=== PATIENT | male | born 1960 | race Caucasian/White ===

== ENCOUNTER 2024-07-09 23:58 | Inpatient (IN) | payer MEDICARE, SELFPAY ==
[2024-07-09] VITALS (14 sets, daily range): BP systolic 127–200; BP diastolic 66–106; BMI 28.5
[2024-07-09 20:59] LABS: % Basophils 0.8 % (0-2); % Eosinophils 1.6 % (0-6); % Immature Granulocytes 0.3 % (0-0.5); % Lymphocytes 22.1 % (20.5-51.1); % Monocytes 9.8 % (1.7-9.3); % Neutrophils 65.4 % (42.2-75.2); Absolute Basophils 0.1 10^3/uL (0-0.2); Absolute Eosinophils 0.1 10^3/uL (0-0.7); Absolute Lymphocytes 1.4 10^3/uL (1.2-3.4); Absolute Monocytes 0.6 10^3/uL (0.1-0.6); Absolute Neutrophils 4.1 10^3/uL (1.4-6.5); Hematocrit 44.9 % (39.0-52.0); Hemoglobin 14.9 g/dL (13.0-18.0); Mean Corp Hgb Conc. 33.2 g/dL (33.0-37.0); Mean Corpuscular Hgb 28.7 pg (27.0-31.0); Mean Corpuscular Volume 86.5 fL (80.0-94.0); Mean Platelet Volume 9.2 fL (7.4-10.4); Nucleated Red Blood Cells % 0 % (-); Platelet Count 257 10^3/uL (130-400); Red Blood Cell Count 5.19 10^6/uL (4.70-6.10); White Blood Cell Count 6.3 10^3/uL (4.8-10.8)
[2024-07-09 21:14] LABS: ALT (SGPT) 34 U/L (0-50); AST (SGOT) 39 U/L (17-59); Albumin 4.4 g/dl (3.5-5.0); Alkaline Phosphatase 113 U/L (38-126); Blood Urea Nitrogen 22 mg/dl (9-20); Calcium 9.3 mg/dl (8.4-10.2); Carbon Dioxide 26 mmol/L (22-30); Chloride 101 mmol/L (98-107); Glucose 163 mg/dl (70-99); Potassium 4.3 mmol/L (3.5-5.1); Sodium 139 mmol/L (135-145); Total Bilirubin 0.3 mg/dl (0.2-1.3); Total Protein 6.7 g/dl (6.3-8.2); eGFR > 60.00
[2024-07-09 21:21] LABS: Troponin I 0.064 ng/ml
[2024-07-09] MEDS: LOW STRENGTH ASPIRIN 324 MG PO (21:27)
[2024-07-09] MEDS: NITROSTAT (SUBLINGUAL) 0.4 MG SL (21:33)
--- NOTE | 2024-07-09 21:42 | ED.GENMED ---
History of Present Illness
<Cristi Sarmiento PA-C - Last Filed: 07/09/24 22:45>
General
Chief Complaint: Chest Pain
Source: patient
Time Seen by Provider: 07/09/24 21:15
History of Present Illness
History of Present Illness:
4-year-old male with past medical history of hypertension who presents to the emergency department for evaluation after he started experiencing chest comfort about 2-1/2 weeks ago while he was on his usual walk with his stating that they walk
at least 4 miles every day, 5 miles on Tuesday but that during the beginning of the while/jog he started to experience midsternal chest heaviness and bilateral arm discomfort that lasted the duration of the light jog and then would resolve following
cessation of the activity. Patient states that this occurred a couple times over the last 2-1/2 weeks but he also noted some chest discomfort at nighttime while sleeping twice over the last 2-1/2 weeks as well. Patient made an appointment with his
primary care provider due to the symptoms which was scheduled for tomorrow however earlier this evening he was helping a neighbor with a locked door when he was climbing up a ladder and while climbing the ladder started to experience the chest
discomfort and bilateral arm heaviness again. The chest discomfort resolved while on the way to the hospital. He denies any history of similar. Did not take anything for his symptoms prior to arrival. Social history was noncontributory. Family
history was noted for grandmother having a cardiac stent
Past History
<Cristi Sarmiento PA-C - Last Filed: 07/09/24 22:45>
Past History
ED Past Medical History: HTN
ED Past Surgical History: Orthopedic and Tonsilectomy
Social History
Tobacco: Non-smoker
Alcohol: Occasional
Drug: None
Personal:
Living: with family
Review of Systems
<Cristi Sarmiento PA-C - Last Filed: 07/09/24 22:45>
Review of Systems
All Other Systems: ROS reviewed and negative except as documented in HPI and ROS
Phy Exam
<Cristi Sarmiento PA-C - Last Filed: 07/09/24 22:45>
Physical Exam
Physical Exam:
GENERAL: Alert , in no apparent distress
EYE: Clear conjunctiva
NECK: Supple
ENT: o/p clr, mmm.
CARDIAC: Regular rate and rhythm, no murmur.
LUNGS: Clear breath sounds bilaterally, no acute respiratory distress, no wheezes/rales/rhonchi
ABDOMEN: Soft, without focal tenderness, no r/g, no cvat
NEUROLOGICAL: Alert and oriented
SKIN: Warm and dry, skin intact.
MUSCULOSKELETAL: No edema, well perfused.
PSYCH: Normal and appropriate interaction.
Scores
<Cristi Sarmiento PA-C - Last Filed: 07/09/24 22:45>
Heart Failure Risk
Heart Failure Risk Score: Not Applicable
Heart Score for Chest Pain Patients
STEMI patient?: No
History: Highly Suspicious
ECG: Nonspecific Repolarization
Age: >/= 65 years
Risk Factors: 1 or 2 Risk Factors
Troponin: </= Normal Limit
Heart Score for Chest Pain Patients: 6
Heart Score Risk: 20.3% MACE over next 6 weeks
Withdrawal Assessment of Alcohol
Withdrawal Assessment Completed?: Not applicable
Course
<Cristi Sarmiento PA-C - Last Filed: 07/09/24 22:45>
Orders/Labs/Results
Orders:
Orders
07/09/24 20:30
ECG [Electrocardiogram (*1)] Urgent
Reason for Study: Chest Pain
EKG- Treatment ONCE
07/09/24 20:50
Complete Blood Count/With Diff Urgent
Comprehensive Metabolic Panel Urgent
Troponin I Urgent
07/09/24 21:25
Aspirin Chewable [Low Strength Aspirin] 324 mg .ROUTE .STK-MED ONE
07/09/24 21:27
Aspirin Chewable [Low Strength Aspirin] 324 mg PO NOW STA
07/09/24 21:31
EKG [Electrocardiogram (*1)] Urgent
Reason for Study: Chest Pain
07/09/24 21:32
EKG- Treatment ONCE
Nitroglycerin Sublingual [Nitrostat (Sublingual)] 0.4 mg .ROUTE .STK-MED ONE
07/09/24 21:34
Nitroglycerin Sublingual [Nitrostat (Sublingual)] 0.4 mg SL [id number] PRN
07/09/24 21:38
Metoprolol [Lopressor] 5 mg IV NOW STA
07/09/24 21:40
Heparin 4,000 units IV NOW STA
Nursing to Place Non Medication Order As Directed
Physician Order: PTT 6 hours after initial start of Heparin infusion
07/09/24 21:41
Heparin 4,000 units IV NOW STA
Nursing to Place Non Medication Order As Directed
Physician Order: PTT 6 hours after initial start of Heparin infusion
07/09/24 21:42
CR Chest - 2 Views Urgent
Comment:
Reason For Exam: chest pain, angina
07/09/24 21:43
PTT Urgent
Comment: Obtain baseline before beginning heparin infusion if not already collected
07/09/24 21:45
Heparin 56971 Units/250 ml 25,000 units in 250 ml IV PER PROTOCOL
Weight to be used for heparin protocol in kilograms (kg):: 92.6
Protocol:: Cardiac Tx/Acute Coronary
PTT Goal Range to be used:: PTT 73 to 111 seconds
Order type:: Initial
INITIAL Infusion Dose (UNITS/KG/hr) & then follow protocol:: 15 units/kg/hr
Infusion Dose in UNITS/hr & then follow protocol (UNITS/hr):: 1,400
INFUSION RATE in mL/hr & then follow protocol (mL/hr):: 14
PTT less than or equal to 64 seconds:: Increase rate by 200 units/hr (+ 2 mL/hr)
PTT 64.1 to 72.9 seconds:: Increase rate by 100 units/hr (+ 1 mL/hr)
PTT 73 to 111 seconds:: Target Range. No change in rate.
PTT 111.1 to 130.9 seconds:: Decrease rate by 100 units/hr (- 1 mL/hr)
PTT 131 to 199.9 seconds:: HOLD for 1 hr. Then decrease rate by 200 units/hr (- 2 mL/hr)
PTT greater than or equal to 200 seconds:: HOLD for 2 hrs & Notify Provider. Then decrease by 200 units/hr (-
2 mL/hr)
Lab follow-up:: Each change, PTT q6h until 2 consecutive are therapeutic. Then PTT
daily.
Heparin 56185 Units/250 ml 25,000 units in 250 ml IV PER PROTOCOL
Weight to be used for heparin protocol in kilograms (kg):: 92.6
Protocol:: Cardiac Tx/Acute Coronary
PTT Goal Range to be used:: PTT 73 to 111 seconds
Order type:: Initial
INITIAL Infusion Dose (UNITS/KG/hr) & then follow protocol:: 12 units/kg/hr
Infusion Dose in UNITS/hr & then follow protocol (UNITS/hr):: 1,000
INFUSION RATE in mL/hr & then follow protocol (mL/hr):: 10
PTT less than or equal to 64 seconds:: Increase rate by 200 units/hr (+ 2 mL/hr)
PTT 64.1 to 72.9 seconds:: Increase rate by 100 units/hr (+ 1 mL/hr)
PTT 73 to 111 seconds:: Target Range. No change in rate.
PTT 111.1 to 130.9 seconds:: Decrease rate by 100 units/hr (- 1 mL/hr)
PTT 131 to 199.9 seconds:: HOLD for 1 hr. Then decrease rate by 200 units/hr (- 2 mL/hr)
PTT greater than or equal to 200 seconds:: HOLD for 2 hrs & Notify Provider. Then decrease by 200 units/hr (-
2 mL/hr)
Lab follow-up:: Each change, PTT q6h until 2 consecutive are therapeutic. Then PTT
daily.
Nitroglycerin 100 mg/250 ml [Nitroglycerin Premix] 100 mg in 250 ml IV PER PROTOCOL
Initial dose in mcg/min, then titrate:: 10
Titrate to keep:: Chest Pain Free
Titrate by mcg/min:: 5 mcg/min, may increase by 10 mcg/min if dose > 20 mcg/min
Frequency of titrations (minutes):: every 3-5 minutes
Maximum dose in mcg/min:: 200
Begin to taper infusion when:: Remained at goal for 2hrs
Taper by mcg/min:: 5 mcg/min
Frequency of taper (minutes) if patient maintains goal:: 30
Taper to off?: Yes
If infusion off & no longer maintaining goal:: Contact Provider
Abnormal Lab Results
07/09/24
20:50
Monocytes % 9.8 H %
(1.7-9.3)
BUN 22 H mg/dl
(9-20)
Glucose 163 H mg/dl
(70-99)
Troponin I 0.064 H* ng/ml
07/09/24 20:50
07/09/24 20:50
Vital Signs
Initial and Last Documented VS:
Initial Vital Signs
Temp Pulse Resp BP Pulse Ox
99.0 F 96 18 193/106 96
07/09/24 20:34 07/09/24 20:34 07/09/24 20:34 07/09/24 20:34 07/09/24 20:34
Last Documented Vital Signs
Temp Pulse Resp BP Pulse Ox
99.0 F 88 15 155/84 96
07/09/24 20:34 07/09/24 21:45 07/09/24 21:45 07/09/24 21:42 07/09/24 21:45
Cover Machine Operator consulted with Physician
Cover Machine Operator consulted with physician?: Yes
Name of Physician Consulted: Nitza
<Thomas Goddard, DO - Last Filed: 07/09/24 21:48>
Orders/Labs/Results
Orders:
Orders
07/09/24 20:30
ECG [Electrocardiogram (*1)] Urgent
Reason for Study: Chest Pain
EKG- Treatment ONCE
07/09/24 20:50
Complete Blood Count/With Diff Urgent
Comprehensive Metabolic Panel Urgent
Troponin I Urgent
07/09/24 21:25
Aspirin Chewable [Low Strength Aspirin] 324 mg .ROUTE .STK-MED ONE
07/09/24 21:27
Aspirin Chewable [Low Strength Aspirin] 324 mg PO NOW STA
07/09/24 21:31
EKG [Electrocardiogram (*1)] Urgent
Reason for Study: Chest Pain
07/09/24 21:32
EKG- Treatment ONCE
Nitroglycerin Sublingual [Nitrostat (Sublingual)] 0.4 mg .ROUTE .STK-MED ONE
07/09/24 21:34
Nitroglycerin Sublingual [Nitrostat (Sublingual)] 0.4 mg SL [id number] PRN
07/09/24 21:38
Metoprolol [Lopressor] 5 mg IV NOW STA
07/09/24 21:40
Heparin 4,000 units IV NOW STA
Nursing to Place Non Medication Order As Directed
Physician Order: PTT 6 hours after initial start of Heparin infusion
07/09/24 21:41
Heparin 4,000 units IV NOW STA
Nursing to Place Non Medication Order As Directed
Physician Order: PTT 6 hours after initial start of Heparin infusion
07/09/24 21:42
CR Chest - 2 Views Urgent
Comment:
Reason For Exam: chest pain, angina
07/09/24 21:43
PTT Urgent
Comment: Obtain baseline before beginning heparin infusion if not already collected
07/09/24 21:45
Heparin 26004 Units/250 ml 25,000 units in 250 ml IV PER PROTOCOL
Weight to be used for heparin protocol in kilograms (kg):: 92.6
Protocol:: Cardiac Tx/Acute Coronary
PTT Goal Range to be used:: PTT 73 to 111 seconds
Order type:: Initial
INITIAL Infusion Dose (UNITS/KG/hr) & then follow protocol:: 15 units/kg/hr
Infusion Dose in UNITS/hr & then follow protocol (UNITS/hr):: 1,400
INFUSION RATE in mL/hr & then follow protocol (mL/hr):: 14
PTT less than or equal to 64 seconds:: Increase rate by 200 units/hr (+ 2 mL/hr)
PTT 64.1 to 72.9 seconds:: Increase rate by 100 units/hr (+ 1 mL/hr)
PTT 73 to 111 seconds:: Target Range. No change in rate.
PTT 111.1 to 130.9 seconds:: Decrease rate by 100 units/hr (- 1 mL/hr)
PTT 131 to 199.9 seconds:: HOLD for 1 hr. Then decrease rate by 200 units/hr (- 2 mL/hr)
PTT greater than or equal to 200 seconds:: HOLD for 2 hrs & Notify Provider. Then decrease by 200 units/hr (-
2 mL/hr)
Lab follow-up:: Each change, PTT q6h until 2 consecutive are therapeutic. Then PTT
daily.
Heparin 33365 Units/250 ml 25,000 units in 250 ml IV PER PROTOCOL
Weight to be used for heparin protocol in kilograms (kg):: 92.6
Protocol:: Cardiac Tx/Acute Coronary
PTT Goal Range to be used:: PTT 73 to 111 seconds
Order type:: Initial
INITIAL Infusion Dose (UNITS/KG/hr) & then follow protocol:: 12 units/kg/hr
Infusion Dose in UNITS/hr & then follow protocol (UNITS/hr):: 1,000
INFUSION RATE in mL/hr & then follow protocol (mL/hr):: 10
PTT less than or equal to 64 seconds:: Increase rate by 200 units/hr (+ 2 mL/hr)
PTT 64.1 to 72.9 seconds:: Increase rate by 100 units/hr (+ 1 mL/hr)
PTT 73 to 111 seconds:: Target Range. No change in rate.
PTT 111.1 to 130.9 seconds:: Decrease rate by 100 units/hr (- 1 mL/hr)
PTT 131 to 199.9 seconds:: HOLD for 1 hr. Then decrease rate by 200 units/hr (- 2 mL/hr)
PTT greater than or equal to 200 seconds:: HOLD for 2 hrs & Notify Provider. Then decrease by 200 units/hr (-
2 mL/hr)
Lab follow-up:: Each change, PTT q6h until 2 consecutive are therapeutic. Then PTT
daily.
Nitroglycerin 100 mg/250 ml [Nitroglycerin Premix] 100 mg in 250 ml IV PER PROTOCOL
Initial dose in mcg/min, then titrate:: 10
Titrate to keep:: Chest Pain Free
Titrate by mcg/min:: 5 mcg/min, may increase by 10 mcg/min if dose > 20 mcg/min
Frequency of titrations (minutes):: every 3-5 minutes
Maximum dose in mcg/min:: 200
Begin to taper infusion when:: Remained at goal for 2hrs
Taper by mcg/min:: 5 mcg/min
Frequency of taper (minutes) if patient maintains goal:: 30
Taper to off?: Yes
If infusion off & no longer maintaining goal:: Contact Provider
Abnormal Lab Results
07/09/24
20:50
Monocytes % 9.8 H %
(1.7-9.3)
BUN 22 H mg/dl
(9-20)
Glucose 163 H mg/dl
(70-99)
Troponin I 0.064 H* ng/ml
07/09/24 20:50
07/09/24 20:50
Vital Signs
Initial and Last Documented VS:
Initial Vital Signs
Temp Pulse Resp BP Pulse Ox
99.0 F 96 18 193/106 96
07/09/24 20:34 07/09/24 20:34 07/09/24 20:34 07/09/24 20:34 07/09/24 20:34
Last Documented Vital Signs
Temp Pulse Resp BP Pulse Ox
99.0 F 88 15 155/84 96
07/09/24 20:34 07/09/24 21:45 07/09/24 21:45 07/09/24 21:42 07/09/24 21:45
<Cristi Sarmiento PA-C - Last Filed: 07/09/24 22:45>
MDM/Problems Addressed
Differential Diagnosis Includes:
Angina, NSTEMI, STEMI, PE, dissection, GERD/gastritis
MDM/Problems Addressed:
64-year-old male presenting to the emergency department for evaluation of what sounds to be anginal related symptoms over the last 2-1/2 weeks. Symptoms progressively worsening. During examination patient started to complain of recurring chest
discomfort and got diaphoretic. He was hypertensive. Repeat EKG ordered which shows nonspecific ST changes. He was given a dose of sublingual nitroglycerin and 324 mg of aspirin. Following the sublingual nitroglycerin patient was again chest
pain-free. Labs have been initiated on arrival and patient does have a slightly elevated troponin at 0.064. I am most suspicious for angina as cause of patient's symptoms. Given findings will initiate heparin and nitro drip ordered. Will consult
with cardiology with anticipated admission and further evaluation by cardiology in the morning.
Chronic conditions affecting care: HTN
Acute Exacerbation and/or Progression of Chronic Illness: HTN
<Cristi Sarmiento PA-C - Last Filed: 07/09/24 22:45>
*Pulse Oximetry
Patient hypoxic: no
*EKG
Heart Rate: 84
Rate: normal
Rhythm: sinus
Ischemia: no ischemia
*[employer] Interpretation
Rate: normal
Rhythm: sinus
*Critical Care Note
Total Time (30-74mins, 75-104mins- exclusive of procedures): 35
comment:
Critical care statement: A total of 35 minutes of critical care time was provided for this patient. This includes management of unstable vital signs, evaluation of the patient at bedside, reviewing the patient's pertinent medical records, discussion
with consultants, review of old EKGs and review of pertinent medical records. This time with separate from time utilized to perform the aforementioned documented procedures
<Cristi Sarmiento PA-C - Last Filed: 07/09/24 22:45>
Patient Management
Discussion with other providers: Hospitalist and Bridge Teacher
Escalation/DeEscalation of care consider admission/obs:
Cardiology agrees with plan. Hospitalist team accepts for continued evaluation and treatment.
Repeat EKG shows ST changes in V4 through V6 and inferior leads but no STEMI.
ED Attending Note
<Cristi Sarmiento PA-C - Last Filed: 07/09/24 22:45>
-
Portions of this chart may have been created with voice recognition software.� Occasional wrong word or��sound alike� substitutions may have occurred due to the inherent limitations of voice recognition software.
<Thomas Goddard DO - Last Filed: 07/09/24 21:48>
ED Attending Note
Patient seen and examined by attending physician: Yes
I performed the substantive portion of visit, reviewed & personally made and approve the management plan that is documented in note by myself or FELIPA.: Yes
ED Attending Note:
Seen with PA examined independently 64 male hypertension 2 to 4 weeks of chest pains issues with exertion worsening now some with rest tonight, blood pressures up EKG with some dynamic changes laterally, chest pain-free after 1 sublingual nitro
initial troponin noted, pain went into his jaw and bilateral arms did not go to his back, will start beta-radha heparin nitrates, follow closely
Discharge Plan
Departure
Patient Disposition: Admit
Date of Disposition: 07/09/24
Time of Disposition: 21:42
Presentation/result/management discussed w/ accepting MD/DO: Hospitalist
Discharge Problem:
Angina pectoris, Hypertension
Prescriptions:
No Action
amlodipine 5 mg Tablet
5 mg PO HS
losartan 100 mg Tablet
100 mg PO DAILY
Theragen Tablet
1 tab PO DAILY
aspirin 81 mg Tablet,Delayed Release (Dr/Ec)
81 mg PO DAILY
famotidine 20 mg Tablet
20 mg PO DAILY
diphenhydramine HCl [Benadryl] 25 mg Capsule
25 mg PO DAILY
cholecalciferol (vitamin D3) 125 mcg (5,000 unit) Tablet
125 mcg PO DAILY
red yeast rice 600 mg Tablet
600 mg PO DAILY
PreserVision AREDS-2 250-90-40-1 mg Capsule
1 tab PO DAILY
cyanocobalamin (vitamin B-12) 2,500 mcg Tablet
2,500 mcg PO DAILY
[employer] 750 mg-100 mg- 1.65 mg-108 mg Tablet
1 tab PO DAILY
Interventions
Interventions:
*Risk Screen - Suicide Last Done: 07/09/24 20:34
*General Assessment Last Done: 07/09/24 20:34
*Neglect/Abuse Screening Last Done: 07/09/24 20:34
Discharge Date and Time
Print Language: KENYAN
[2024-07-09] MEDS: NITROGLYCERIN PREMIX 250 IV (21:52)
[2024-07-09 22:01] LABS: APTT 27.4 Sec (23.4-35.0)
[2024-07-09] MEDS: HEPARIN 4000 UNITS IV (22:08)
[2024-07-09] MEDS: HEPARIN 25000 UNITS/250 ML IV (22:09)
[2024-07-10] VITALS (23 sets, daily range): BP systolic 123–160; BP diastolic 64–83; BMI 27.2
--- NOTE | 2024-07-10 00:02 | HPS.HSE ---
Family Physician
-
Family Physician: Tawnya Anthony DO
Chief Complaint
-
Chest pain
History of Present Illness
This is a 64-year-old with past medical history of hypertension and otherwise healthy who presents to the emergency department with worsening chest pain that became persistent and waking him up from sleep today.
Patient reports a history of intermittent chest pain for the last 21/2 weeks. Initially he had a chest pain associated with physical exertion. 8 because after a run he reports substernal chest pain that appears to radiate to the arms and shoulders
bilaterally. Initially no diaphoresis nausea or vomiting. He reports that initially had it was every week on Fridays with his exercises. However he started having the chest pain while walking up a flight of stairs and then developed chest pain
while at rest. He reported that tonight the chest pain woke him up from sleep, again substernal radiating to the arms and associated with heaviness. He denies feeling dizzy or lightheaded. He denies any pleuritic chest pain.
Patient denies prior history of coronary artery disease. He denies any history of blood clots. He has no history of for arrhythmias. Patient reports family history with CAD in grandparents.
In the emergency department the patient was afebrile with temp of 99, blood pressure was 150/89 and was at 96% on room air. ECG shows a sinus rhythm with a rate in the 70s. No acute ischemia. His troponin was 0.064. The rest of his CBC was
unremarkable. Electrolytes BUN/creatinine were all within normal limits. Chest x-ray was clear.
Medical History
Past Medical History
Past Medical History: Reports GERD and HTN
Past Surgical History: Reports Tonsilectomy
Social History
Tobacco: Non-smoker
Alcohol: Occasional
Drug: None
Personal:
Living: With Family
Employment: Retired
Family History
Family History: Not pertinent
Allergies / Home Medications
Allergies reflects when Allergies were last updated in [employer].
Home Medications with original date entered in [employer]
Allergy/Medication List:
Allergies
Allergy/AdvReac Type Severity Reaction Status Date / Time
No Known Allergies Allergy Verified 07/09/24 20:44
Home Medications
amlodipine 5 mg tablet 5 mg PO HS 07/09/24
aspirin 81 mg tablet,delayed release 81 mg PO DAILY 07/09/24
cholecalciferol (vitamin D3) 125 mcg (5,000 unit) tablet 125 mcg PO DAILY 07/09/24
cyanocobalamin (vitamin B-12) 2,500 mcg tablet 2,500 mcg PO DAILY 07/09/24
diphenhydramine HCl 25 mg capsule (Benadryl) 25 mg PO DAILY 07/09/24
famotidine 20 mg tablet 20 mg PO DAILY 07/09/24
glucosam 750 mg-chondroi 100 mg-hyalur 1.65 mg-CF borate 108 mg tablet ([facility]) 1 tab PO DAILY 07/09/24
losartan 100 mg tablet 100 mg PO DAILY 07/09/24
red yeast rice 600 mg tablet 600 mg PO DAILY 07/09/24
therapeutic multivitamin 1 tab PO DAILY 07/09/24
vit C 250 mg-vit E 90 mg-zinc 40 mg-copper 1 lj-cuiyde-myuvub capsule (PreserVision AREDS-2) 1 tab PO DAILY 07/09/24
Review of Systems
-
History Source: Patient
Constitutional: Reports No Symptoms
EENT: Reports No Symptoms
Respiratory: Reports No Symptoms
Cardiac: Reports Chest Pain
Abdomen/GI: Reports No Symptoms
: Reports No Symptoms
Musculoskeletal: Reports No Symptoms
Skin: Reports No Symptoms
Neurological: Reports No Symptoms
Endocrine: Reports No Symptoms
Hematologic/Lymphatic: Reports No Symptoms
Psych: Reports No Symptoms
Physical Exam
Vital Signs
Vital Signs
Temp Pulse Resp BP Pulse Ox
99.0 F 78 18 149/80 98
07/09/24 20:34 07/09/24 23:45 07/09/24 23:45 07/09/24 23:45 07/09/24 23:45
Physical Exam
General: Well Developed, Well Nourished, Comfortable and Conversant
HEENT: NormoCephalic, Anicteric, Moist mucous membranes and Atraumatic
Respiratory: Clear
Cardiac: S1/S2 and Regular Rhythm
Breast: Deferred by me
GI: Soft, Non Tender, Non Distended and Normal Bowel Sounds
Rectal: Deferred by Provider
Genito-urinary: Deferred by me
Musculoskeletal: No Clubbing, No Cyanosis and No Edema
Skin: Warm
Neuro: AO x 3
Hematologic/Lymphatic: No Lymphadenopathy
Psych: Calm
Laboratory Results
-
07/09/24 20:50
07/09/24 20:50
Laboratory Results
APTT 27.4 Sec (23.4-35.0) 07/09/24 21:43
Total Bilirubin 0.3 mg/dl (0.2-1.3) 07/09/24 20:50
AST 39 U/L (17-59) 07/09/24 20:50
ALT 34 U/L (0-50) 07/09/24 20:50
Alkaline Phosphatase 113 U/L (38-126) 07/09/24 20:50
Troponin I 0.064 ng/ml H* 07/09/24 20:50
Data Reviewed
-
Diagnostic Radiology: Image Personally Visualized and interpreted and Report Reviewed by me
Medical Tests (Nuc Med, Echo, EKG etc): Image Personally Visualized and interpreted
Lab Data: Labs Reviewed by me
Old Records: Reviewed
Impression/Plan
-
IMPRESSION:
PLAN:
NSTEMI - History c/w crescendo angina leading to unstable angina and found to have NSTEMI here. Initial trop 0.064. CP relieved with nitro
- admit to ivu
- npo after midnight
- started aspirin, heparin gtt
- ntg gtt titrated to cp fee
- continue home losartan and norvasc with hold parameters
- echo, cardiovascular profile, a1c in am
- cardiology consulted and notifed, requested IVU admission
HTN
- continue losartan and norvasc for now
GI PP x
-continue famotidine
Code status - Full Code
[2024-07-10 00:03] LABS: Troponin I 0.086 ng/ml
[2024-07-10] MEDS: TYLENOL 650 MG PO (04:18)
[2024-07-10 05:04] LABS: Blood Urea Nitrogen 20 mg/dl (9-20); Calcium 8.8 mg/dl (8.4-10.2); Carbon Dioxide 23 mmol/L (22-30); Chloride 106 mmol/L (98-107); Estimated Creatinine Clearance 112 ml/min; Glucose 115 mg/dl (70-99); HDL Cholesterol 52 mg/dl; LDL Cholesterol, Calculated 93 mg/dl; Potassium 4.2 mmol/L (3.5-5.1); Sodium 141 mmol/L (135-145); Total Cholesterol 158 mg/dl (50-199); Triglyceride 69 mg/dl (10-149); Very Low Density Lipoprotein 13 mg/dl (0-30); eGFR > 60.00
[2024-07-10 05:16] LABS: Troponin I 0.072 ng/ml
--- NOTE | 2024-07-10 05:18 | PTCARENOTE ---
Pt chest pain free since coming up from ED just after mn. Pt was medicated with Tylenol for c/o h/a. Heparin gtt adjusted for ptt 116. Currently infusing at 1300 unit/hr. Pt remains npo. Sinus on telemetry
[2024-07-10 05:49] LABS: Hepatitis C Antibody Negative (Negative)
[2024-07-10 06:21] LABS: Hematocrit 40.1 % (39.0-52.0); Hemoglobin 13.7 g/dL (13.0-18.0); Mean Corp Hgb Conc. 34.2 g/dL (33.0-37.0); Mean Corpuscular Hgb 29.1 pg (27.0-31.0); Mean Corpuscular Volume 85.1 fL (80.0-94.0); Mean Platelet Volume 9.6 fL (7.4-10.4); Platelet Count 239 10^3/uL (130-400); Red Blood Cell Count 4.71 10^6/uL (4.70-6.10); Red Cell Dist. Width 13.1 % (11.5-14.5); White Blood Cell Count 6.2 10^3/uL (4.8-10.8)
--- NOTE | 2024-07-10 07:30 | CON.CAR ---
Addendum entered and electronically signed by Cristine Abbott MD 07/10/24 08:48:
I saw and examined the patient.
The Surveying Crew Stake Runner's note was reviewed and I agree with the note.
Comment: Patient presents with crescendo unstable angina that started about 2 to 3 weeks ago. He has had rest symptoms at home. Troponins mildly elevated consistent with non-Q wave myocardial infarction. Risk factors for coronary artery disease
include grandfather with aortic aneurysm rupture in 60s and grandmother with angina and carotid disease later in life. He has hypertension that previously has been well-controlled. Lipids could be better. EKG stable with nonspecific ST-T wave
abnormality.
Exam regular rate and rhythm. Lungs clear. No edema. Can feel abdominal aorta pulsation not clearly enlarged.
Plan at this time:
We discussed the risks and benefits of proceeding with cardiac catheterization he is agreeable. Procedure discussed at length and all questions answered. Continue heparin and nitrates. No current angina on treatment.
Continue antihypertensive medications.
Start statin.
Aspirin started.
Trend troponins
Echocardiogram
Eventually abdominal aorta ultrasound
Original Note:
Consultation
Consultation Request
Date/Time Consultation Requested: 07/10/24 at 0119
Date/Time Consultation Performed: 07/10/24 at 0730
Requesting Provider: Dr. Contreras
Performing Provider: Dr. Cristine Abbott
Reason for Consultation: Chest pain, NSTEMI
Medical History
-
History of Present Illness:
Patient came to [facility] last night with chest pain and cardiology is now consulted for NSTEMI. Patient is an active 64-year-old man and exercises on a daily basis and then goes running about once a week. He was on his usual run 2 weeks ago when he
started with chest pain that went away around mile 3 he was unable to finish his run. The following week while running the chest pain started earlier in his run. Then over the last week he started with chest pain while walking and then chest pain
at rest. He had episodes of chest pain that woke him from sleep in the last week. Yesterday he climbed a ladder to help a neighbor fix her garage open hearth door liner and then while walking back to his house had crushing chest pain that was the worst he is
ever had and came to ER. His troponin peaked 0.086. He is pain-free now on heparin drip and NTG gtt. Patient was taking amlodipine 5 mg daily and losartan 100 mg daily prior to admission along with an aspirin a day.
PMH:
HTN
Past Medical History
Past Medical History: Other (in HPI)
Past Surgical History: Orthopedic ([place]'s tendon repair)
Social History
Tobacco: Non-Smoker
Alcohol: Occasional
Drug: None
Personal:
Living: With Family
Family History
Family History: CAD (maternal grandmother with carotid disease and angina in her 80s, paternal grandfather AAA rupture in his 60s)
Allergies / Home Medications
Allergy/AdvReac Type Severity Reaction Status Date / Time
No Known Allergies Allergy Verified 07/09/24 20:44
�Medication �Instructions �Recorded �Confirmed �Type
amlodipine 5 mg tablet 5 mg PO HS 07/09/24 07/09/24 History
aspirin 81 mg tablet,delayed 81 mg PO DAILY 07/09/24 07/09/24 History
release
cholecalciferol (vitamin D3) 125 125 mcg PO DAILY 07/09/24 07/09/24 History
mcg (5,000 unit) tablet
cyanocobalamin (vitamin B-12) 2,500 mcg PO DAILY 07/09/24 07/09/24 History
2,500 mcg tablet
diphenhydramine HCl 25 mg capsule 25 mg PO DAILY 07/09/24 07/09/24 History
(Benadryl)
famotidine 20 mg tablet 20 mg PO DAILY 07/09/24 07/09/24 History
glucosam 750 mg-chondroi 100 1 tab PO DAILY 07/09/24 07/09/24 History
mg-hyalur 1.65 mg-CF borate 108 mg
tablet (Move Free [employer]
losartan 100 mg tablet 100 mg PO DAILY 07/09/24 07/09/24 History
red yeast rice 600 mg tablet 600 mg PO DAILY 07/09/24 07/09/24 History
therapeutic multivitamin 1 tab PO DAILY 07/09/24 07/09/24 History
vit C 250 mg-vit E 90 mg-zinc 40 1 tab PO DAILY 07/09/24 07/09/24 History
mg-copper 1 [id number]
capsule (PreserVision AREDS-2)
Review of Systems
-
History Source: Patient
All other systems: Negative unless noted
Physical Exam
Vital Signs
Temp Pulse Resp BP Pulse Ox
98.0 F 65 20 128/77 97
07/10/24 04:05 07/10/24 04:45 07/10/24 04:05 07/10/24 04:05 07/10/24 04:05
GEN: NAD. AAOx3
HEENT: EOMI, MMM
LUNGS: RA. CTA B/L, no audible wheeze
CV: Reg, S1/S2, no murmur
ABD: soft, BS+, NT, ND
EXT: No clubbing, cyanosis, lesions or edema B/L
NEURO: Gross non-focal
SKIN: Warm, dry and pink. No rash
Lab Results
07/10/24 04:17
07/10/24 04:17
Troponin I 0.072 ng/ml H* 07/10/24 04:17
Impression / Plan
-
PCP: Dr. Tawnya Anthony
Cardiology: None prior to admission
Impression:
Chest pain
NSTEMI, peak Troponin 0.086
HTN
Hyperglycemia
Echo 07/10/24: Study pending
Plan:
-Patient came to [facility] last night with chest pain and cardiology is now consulted for NSTEMI. Patient is an active 64-year-old man and exercises on a daily basis and then goes running about once a week. He was on his usual run 2 weeks ago when he
started with chest pain that went away around mile 3 he was unable to finish his run. The following week while running the chest pain started earlier in his run. Then over the last week he started with chest pain while walking and then chest pain
at rest. He had episodes of chest pain that woke him from sleep in the last week. Yesterday he climbed a ladder to help a neighbor fix her garage open hearth door liner and then while walking back to his house had crushing chest pain that was the worst he is
ever had and came to ER. His troponin peaked 0.086. He is pain-free now on heparin drip and NTG gtt. Patient was taking amlodipine 5 mg daily and losartan 100 mg daily prior to admission along with an aspirin a day.
-Check echo
-Cont Heparin gtt
-Cont Nitro gtt
-LDL 93. New to atorvastatin 80 mg daily
-HR 68, will add Lopressor 25 mg q 6 hours
-Outpatient dose of losartan 100 mg daily continued
-Hyperglycemic since admission and HgbA1c pending
-Troponin peaked at 0.086 and will manage as a NSTEMI with plan for cath today.
[2024-07-10] MEDS: BENADRYL 25 MG PO (08:24)
[2024-07-10] MEDS: ASPIR LOW (ENTERIC COATED) 81 MG PO (08:25)
[2024-07-10] MEDS: COZAAR 100 MG PO (08:25)
[2024-07-10 09:11] LABS: Glycohemoglobin (HgbA1c) 5.4 % (4.0-5.6)
--- NOTE | 2024-07-10 10:49 | ITS.CL.CATH ---
Aviation Safety Technician - Catheterization
Cardiac Catheterization
Procedure Report:
LEFT HEART CATHETERIZATION AND CORONARY INTERVENTION
Date of Procedure: July 10, 2024
Referring: rCistine Abbott MD
PROCEDURES:
1. Left heart catheterization, coronary angiogram.
2. Ultrasound-guided access
3. Successful percutaneous coronary artery intervention of 75 to 80% and mid LAD stenosis with a one 2.75 x 15 mm Medtronic [place] drug-eluting stent, postdilated with IVUS guidance using a 2.75 x 12 mm NC balloon at 18 lacie with an excellent
angiographic result.
4. Intravascular ultrasound (IVUS)
INDICATION: NSTEMI
ACCESS: Right radial artery, 6 [place] sheath, under ultrasound guidance
HEMODYNAMICS : (mmHg)
AO (s/d) : 117/65
LV (s/d) : 118/8
LVEDP : 19
CORONARY FINDINGS--the left coronary artery has a high takeoff and was selectively engaged using a 6 [place] AL 2 diagnostic catheter
DOMINANCE: Right
LEFT MAIN: The left main artery is a large-caliber vessel which gives rise to the left anterior descending artery and the left circumflex artery. There is minimal luminal irregularities.
LEFT ANTERIOR DESCENDING: The left anterior descending artery is a medium to large caliber vessel which gives rise to 1 medium caliber diagonal branch and 3 small caliber diagonal branches as it courses to the anterior interventricular groove and
wraps around the apex. Mid LAD has a tapering up to 75-80 percent stenosis proximal to the takeoff of D2 which is thought to be the culprit of patient's presenting ACS and intervention was performed as noted below.
CIRCUMFLEX: The left circumflex artery is a medium caliber vessel which gives rise to 2 major obtuse marginal branch, and a medium caliber left posterolateral branch. There is minimal luminal irregularities.
RIGHT CORONARY ARTERY: The right coronary artery is moderately tortuous, large in caliber, dominant vessel which gives rise to the right posterior descending artery and the right posterolateral system. Mid RCA has diffuse up to 30-40 percent
stenosis.
CORONARY INTERVENTION: Decision was made to move forward with intervention percutaneously to mid LAD. Additional heparin was given to maintain a therapeutic ACT throughout the case. The left coronary artery was selectively engaged using a 6 [place]
AL 2 guide. A 190 cm 0.014' BMW coronary wire was carefully navigated across the lesion into the distal LAD. The lesion was predilated using a 2.5 x 10 mm semi-compliant balloon at 12 lacie with good expansion. The lesion was subsequently stented
using a 2.75 x 15 mm Medtronic [place] drug-eluting stent. Using IVUS guidance the stent was postdilated using a 2.75 x 12 mm NC balloon at 18 lacie with excellent angiographic result. Patient tolerated the procedure well with no acute complications.
He was loaded with 180 mg of Brilinta at the end of the case.
SEDATION: 85 minutes of procedural sedation was utilized. An independent medical receptionist medical assistant was present to assist with and help manage the patient's level of consciousness and physiologic status.
RADIATION SUMMARY: Fluoro Time (min): 15.8, Dose (mGy): 795.85, DAP (Gy.cm2) : 48.3
Closure Device: Right radial artery vascular band, 9 cc of air.
CONCLUSIONS
1. Successful percutaneous coronary artery intervention of 75 to 80% and mid LAD stenosis with a one 2.75 x 15 mm Medtronic [place] drug-eluting stent, postdilated with IVUS guidance using a 2.75 x 12 mm NC balloon at 18 lacie with an excellent
angiographic result.
2. Mid RCA has diffuse up to 30-40 percent stenosis.
3. Elevated LVEDP at 19 mmHg.
RECOMMENDATIONS
1. Uninterrupted dual antiplatelet therapy with daily baby aspirin and Brilinta 90 mg twice daily along with a high intensity statin and beta-radha as tolerated.
2. Full echocardiogram to assess biventricular function.
3. Wean radial band per protocol.
4. Aggressive risk factor modification.
5. Referral for outpatient cardiac rehab.
Vicki Crowley MD, [facility], [facility]
[2024-07-10 11:48] LABS: ACT-LR - POC 268 Seconds (116-155)
[2024-07-10 11:58] LABS: ACT-LR - POC 287 Seconds (116-155)
[2024-07-10 12:08] LABS: ACT-LR - POC 310 Seconds (116-155)
[2024-07-10 12:26] LABS: ACT-LR - POC 294 Seconds (116-155)
--- NOTE | 2024-07-10 12:30 | CM ---
Chart reviewed. Patient is independent of ADLS, lives with his in a 2 STH, 1 ANTOLIN, 0 DME. Plan is for the patient to return home. CM to follow
--- NOTE | 2024-07-10 12:43 | CM ---
Addendum entered by Cintia Blankenship RN 07/10/24 15:41:
Patient is agreeable to cost
Original Note:
Brilinta 90mg BID is covered through the patient's [employer] plan, ID# [id number], at a tier 4 at $361, once patient meets his deductible the medication will cost him $166. I will place a free 30 day coupon in the patient's red discharge folder.
[2024-07-10] MEDS: LIPITOR 80 MG PO (17:52)
--- NOTE | 2024-07-10 18:07 | W.PN.HOSP.TC ---
Today's Communication/Plan
-
will need close cardia follow up
Assessment / Plan
Assessment / Plan
NSTEMI - History c/w crescendo angina leading to unstable angina and found to have NSTEMI here. Initial trop 0.064. CP relieved with nitro
- admit to ivu
- started aspirin, heparin gtt
- ntg gtt titrated to cp fee
- continue home losartan and norvasc with hold parameters
- echo, cardiovascular profile LDL 93/HDL 52, a1c 5.4%
will check Lp(a)
- Heart cath: 1. Successful percutaneous coronary artery intervention of 75 to 80% and mid LAD stenosis with a one 2.75 x 15 mm Medtronic [place] drug-eluting stent, postdilated with IVUS guidance using a 2.75 x 12 mm NC balloon at 18 lacie with an
excellent angiographic result.
2. Mid RCA has diffuse up to 30-40 percent stenosis.
3. Elevated LVEDP at 19 mmHg.
RECOMMENDATIONS
1. Uninterrupted dual antiplatelet therapy with daily baby aspirin and Brilinta 90 mg twice daily along with a high intensity statin and beta-radha as tolerated.
2. Full echocardiogram to assess biventricular function.
3. Wean radial band per protocol.
4. Aggressive risk factor modification.
5. Referral for outpatient cardiac rehab.
HTN
- continue losartan and norvasc for now
GI PP x
-continue famotidine
Code status - Full Code
Anticipated Discharge: Within 24 hours
Subjective/Interval History
-
Date of Service: July 10, 2024
In good spirits, no chest pain
Objective Data
-
Labs:
Laboratory Results
07/10/24 07/10/24
04:17 11:15
WBC 6.2
Hgb 13.7
Hct 40.1
Plt Count 239
APTT Cancelled
Vital Signs:
Vital Signs
Temp Pulse Resp BP Pulse Ox
98.2 F 68 18 135/78 98
07/10/24 07:59 07/10/24 08:15 07/10/24 07:59 07/10/24 08:01 07/10/24 08:31
I&O
07/09/24 07/10/24 07/11/24
06:59 06:59 06:59
Intake Total 76.5 / 76.5
Output Total 600 / 600
Balance -523.5 / -523.5
Review of Systems
-
History Source: Patient and Family ( and son at bedside)
Constitutional: Denies Fever
EENT: Reports No Symptoms Reported
Respiratory: Reports No Symptoms
Cardiac: Reports No Symptoms; Denies Chest Pain
Abdomen/GI: Reports No Symptoms
Musculoskeletal: Reports No Symptoms
Physical Exam
-
General: Well Developed, Well Nourished and No Apparent Distress
HEENT: Normocephalic, Atraumatic and Moist Mucous Membranes
Respiratory: Clear to Auscultation; Negative Wheezes, Rales or Rhonchi
Cardiac: S1/S2
GI: Soft, Nontender and Nondistended
Musculoskeletal: No Clubbing, No Cyanosis and No Edema
Neuro: Awake, Alert and Oriented
[2024-07-10] MEDS: BRILINTA 90 MG PO (20:17)
--- NOTE | 2024-07-10 21:14 | PTCARENOTE ---
Rec'd pt at change of shift. Pt in NSR on TELE monitor with VSS and AAO*3. Pt denies any pain or discomfort. Pt post heart cath and R radial site CDI. Pt agreed to limb restrictions and to report any bleeding or discomfort at site immediately.
Pt resting with call mckeon in reach. Plan of care ongoing.
[2024-07-10] MEDS: NORVASC 5 MG PO (22:36)
[2024-07-11 04:31] VITALS: BP 127/77
[2024-07-11 04:32] VITALS: BP 127/77
[2024-07-11 05:43] LABS: Blood Urea Nitrogen 13 mg/dl (9-20); Calcium 8.9 mg/dl (8.4-10.2); Carbon Dioxide 26 mmol/L (22-30); Chloride 104 mmol/L (98-107); Estimated Creatinine Clearance 112 ml/min; Glucose 106 mg/dl (70-99); Potassium 4.2 mmol/L (3.5-5.1); Sodium 140 mmol/L (135-145); eGFR > 60.00
[2024-07-11 07:22] VITALS: BP 143/82
[2024-07-11] MEDS: COZAAR 100 MG PO (07:54)
[2024-07-11] MEDS: TOPROL XL 25 MG PO (07:55)
[2024-07-11] MEDS: BRILINTA 90 MG PO (07:56)
--- NOTE | 2024-07-11 09:02 | PTCARENOTE ---
Assumed care of pt from night RN. Pt received awake and alert, Ox3. VSS, CM shows NSR 60's, POX 98% on RA. Right radial dsg CDI with normal CMS throughout extremity. Pt denies any pain or discomfort. Awaiting Abd US to evaluate existing AAA.
For possible DC today.
[2024-07-11 11:38] VITALS: BP 158/82
--- NOTE | 2024-07-11 12:08 | CM ---
Chart reviewed. Patient is independent of ADLS, lives with his in a 2 STH, 1 ANTOLIN, 0 DME. I called patient's [facility] and they have his brilinta script and is filled. Plan is for the patient to return home. CM to follow
[2024-07-11] MEDS: ASPIR LOW (ENTERIC COATED) 81 MG PO (12:18)
[2024-07-11] MEDS: BENADRYL 25 MG PO (12:18)
--- NOTE | 2024-07-11 14:22 | W.PN.CARDCBS ---
Addendum entered and electronically signed by Marcial Ye MD 07/11/24 15:04:
I saw and examined the patient.
The Meat Selector's note was reviewed and I agree with the note.
Comment:
GEN: No distress, awake, Ox3
HEENT: supple, anicteric, mmm
LUNGS: CTA, no wheezes/rales
CV: Reg, S1/S2, 1/6 syst LSB, no gallop
ABD: soft, BS+, NT/ND
EXT: No edema
NEURO: Gross non-focal
SKIN: No rash
Plan:
Overall doing well. Status post LAD PCI.
Okay for discharge.
Continue aspirin, Brilinta, Toprol, losartan, amlodipine, and atorvastatin.
Original Note:
Today's Communication / Plan
-
OK for discharge
Continue aspirin and Brilinta
Continue lipitor 80mg daily
Continue Toprol, losartan, and amlodipine
Follow up arranged.
Impression / Plan
-
PCP: Dr. Tawnya Anthony
Cardiology: None prior to admission, initially seen by Dr. Cristine Abbott
Impression:
Chest pain
NSTEMI, peak Troponin 0.086
CAD
s/p LAD PCI 07/10/2024
residual 30-40% stenosis of the RCA by cath 07/10/2024
HTN
Hyperglycemia
LHC 07/10/2024: LM: Minimal luminal irregularities. LAD: 75 to 80% stenosis of the mid LAD which was successfully stented with a 2.75 x 15 mm Andrea JACLYN. LCx: Minimal luminal irregularities. RCA: 30 to 40% stenosis of the mid RCA.
Echo 07/10/24: EF 55 to 60%, trace MR, mild TR, estimated PAP 26 mmHg
Plan:
-Presented with chest pain and NSTEMI. Troponin peaked at 0.086. Trending down thereafter.
-Underwent C 07/10/2024 and noted to have 75 to 80% stenosis of the mid LAD which was successfully stented. Also noted to have residual disease of mid RCA of 30 to 40%.
-Continue DAPT with aspirin and Brilinta.
-Continue Lipitor 80 mg daily. LDL 93.
-Echo 07/10/2024 with preserved EF. No significant valvular disease.
-No further chest pain this admission.
-BP stable, continue Toprol 25 mg daily, losartan 100 mg daily, and amlodipine 5 mg daily.
-HR 68, will add Lopressor 25 mg q 6 hours
-Outpatient dose of losartan 100 mg daily continued
-Hemoglobin A1c 5.4%
-Okay for discharge. Cardiology follow-up arranged.
HPI: Patient came to [facility] last night with chest pain and cardiology is now consulted for NSTEMI. Patient is an active 64-year-old man and exercises on a daily basis and then goes running about once a week. He was on his usual run 2 weeks ago when
he started with chest pain that went away around mile 3 he was unable to finish his run. The following week while running the chest pain started earlier in his run. Then over the last week he started with chest pain while walking and then chest
pain at rest. He had episodes of chest pain that woke him from sleep in the last week. Yesterday he climbed a ladder to help a neighbor fix her garage door fitter and then while walking back to his house had crushing chest pain that was the worst
he is ever had and came to ER. His troponin peaked 0.086. He is pain-free now on heparin drip and NTG gtt. Patient was taking amlodipine 5 mg daily and losartan 100 mg daily prior to admission along with an aspirin a day.
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
Subjective
Date of Service: July 11, 2024
No further chest pain
Objective
Labs:
07/10/24 04:17
07/11/24 04:39
Labs
Hgb 13.7 g/dL (13.0-18.0) 07/10/24 04:17
Hct 40.1 % (39.0-52.0) 07/10/24 04:17
Plt Count 239 10^3/uL (130-400) 07/10/24 04:17
APTT Cancelled 07/10/24 11:15
Sodium 140 mmol/L (135-145) 07/11/24 04:39
Potassium 4.2 mmol/L (3.5-5.1) 07/11/24 04:39
BUN 13 mg/dl (9-20) 07/11/24 04:39
Creatinine 0.7 mg/dL (0.7-1.3) 07/11/24 04:39
Glucose 106 mg/dl (70-99) H 07/11/24 04:39
Troponins
07/09/24 07/09/24 07/10/24
20:50 23:19 01:19
Troponin I 0.064 H* 0.086 H* D Cancelled
07/10/24 07/10/24
04:17 07:19
Troponin I 0.072 H* Cancelled
Vital Signs and I&O:
Vital Signs
Temp Pulse Resp BP Pulse Ox
98.3 F 64 20 158/82 98
07/11/24 11:27 07/11/24 12:00 07/11/24 11:27 07/11/24 11:38 07/11/24 11:27
Vital Signs
Temp Pulse Resp BP Pulse Ox
98.3 F 64 20 158/82 98
07/11/24 11:27 07/11/24 12:00 07/11/24 11:27 07/11/24 11:38 07/11/24 11:27
Intake & Output
07/09/24 07/10/24 07/11/24 07/12/24
06:59 06:59 06:59 06:59
Intake Total 76.5 / 76.5 720 / 720
Output Total 600 / 600
Balance -523.5 / -523.5 720 / 720
--- NOTE | 2024-07-11 15:04 | W.PN.HOSP.TC ---
Today's Communication/Plan
-
dc to home
Assessment / Plan
Assessment / Plan
NSTEMI - History c/w crescendo angina leading to unstable angina and found to have NSTEMI here. Initial trop 0.064. CP relieved with nitro
- admit to ivu
- started aspirin, heparin gtt now off
- ntg gtt titrated to cp free
- continue home losartan and norvasc with hold parameters
- echo, cardiovascular profile LDL 93/HDL 52, a1c 5.4%
will check Lp(a)
- Heart cath: 1. Successful percutaneous coronary artery intervention of 75 to 80% and mid LAD stenosis with a one 2.75 x 15 mm Medtronic [place] drug-eluting stent, postdilated with IVUS guidance using a 2.75 x 12 mm NC balloon at 18 lacie with an
excellent angiographic result.
2. Mid RCA has diffuse up to 30-40 percent stenosis.
3. Elevated LVEDP at 19 mmHg.
RECOMMENDATIONS
1. Uninterrupted dual antiplatelet therapy with daily baby aspirin and Brilinta 90 mg twice daily along with a high intensity statin and beta-radha as tolerated.
2. Full echocardiogram to assess biventricular function.
3. Wean radial band per protocol.
4. Aggressive risk factor modification.
5. Referral for outpatient cardiac rehab.
HTN
- continue losartan and norvasc for now
GI PP x
-continue famotidine
pt cleared for dc by cardio
see dictated note
Code status - Full Code
Anticipated Discharge: Today
Subjective/Interval History
-
Date of Service: July 11, 2024
Feels well, no chest pain
Objective Data
-
Labs:
Laboratory Results
07/11/24
04:39
Sodium 140
Potassium 4.2
Chloride 104
Carbon Dioxide 26
BUN 13
Creatinine 0.7
Glucose 106 H
Calcium 8.9
Vital Signs:
Vital Signs
Temp Pulse Resp BP Pulse Ox
98.3 F 64 20 158/82 98
07/11/24 11:27 07/11/24 12:00 07/11/24 11:27 07/11/24 11:38 07/11/24 11:27
I&O
07/10/24 07/11/24 07/12/24
06:59 06:59 06:59
Intake Total 76.5 / 76.5 720 / 720
Output Total 600 / 600
Balance -523.5 / -523.5 720 / 720
Review of Systems
-
History Source: Patient and Family ( at bedside)
Constitutional: Denies Fever
EENT: Reports No Symptoms Reported
Respiratory: Reports No Symptoms
Cardiac: Reports No Symptoms; Denies Chest Pain
Abdomen/GI: Reports No Symptoms
Musculoskeletal: Reports No Symptoms
Physical Exam
-
General: Well Developed, Well Nourished and No Apparent Distress
HEENT: Normocephalic, Atraumatic and Moist Mucous Membranes
Respiratory: Clear to Auscultation; Negative Wheezes, Rales or Rhonchi
Cardiac: S1/S2
GI: Soft, Nontender and Nondistended
Musculoskeletal: No Clubbing, No Cyanosis and No Edema
Neuro: Awake, Alert and Oriented
--- NOTE | 2024-07-11 15:31 | W.DS.TRANS ---
DC Summary - [place] [facility]
-
Discharge Instructions:
Discharge Diagnosis/Procedures NSTEMI, Angioplasty with stent to LAD
Diet Low Cholesterol
Activity No strenuous activity
Driving Restrictions No driving for 24 hours
Bathing Restrictions None
Other Services Cardiac Rehab
Instructions:
Stand-Alone Forms: DC Instructions- Cath/EP Lab
Changes to Home Medications: Yes
Discharge Medications:
DC Medications w/original date entered in [facility]
amlodipine 5 mg tablet 5 mg PO HS Blood Pressure 07/09/24
aspirin 81 mg tablet,delayed release 81 mg PO DAILY Blood Clot Prevention/Tx 07/09/24
cholecalciferol (vitamin D3) 125 mcg (5,000 unit) tablet 125 mcg PO DAILY Supplement 07/09/24
cyanocobalamin (vitamin B-12) 2,500 mcg tablet 2,500 mcg PO DAILY Supplement 07/09/24
diphenhydramine HCl 25 mg capsule (Benadryl) 25 mg PO DAILY Allergies 07/09/24
famotidine 20 mg tablet 20 mg PO DAILY Gastrointestinal Issue 07/09/24
glucosam 750 mg-chondroi 100 mg-hyalur 1.65 mg-CF borate 108 mg tablet ([employer]) 1 tab PO DAILY Supplement 07/09/24
losartan 100 mg tablet 100 mg PO DAILY Blood Pressure 07/09/24
therapeutic multivitamin 1 tab PO DAILY Supplement 07/09/24
vit C 250 mg-vit E 90 mg-zinc 40 mg-copper 1 [id number] capsule (PreserVision AREDS-2) 1 tab PO DAILY Supplement 07/09/24
atorvastatin 80 mg tablet 80 mg PO QPM #90 tabs 07/11/24
metoprolol succinate 25 mg tablet,extended release 24 hr 25 mg PO DAILY #90 tabs 07/11/24
nitroglycerin 0.4 mg sublingual tablet 0.4 mg sublingual [id number] PRN chest pain #25 tabs 07/11/24
ticagrelor 90 mg tablet (Brilinta) 90 mg PO BID #60 tabs 07/11/24
Home Medication Changes
stop Red Rice Yeast Extract
Start Brilinta, Toprol XL, Lipitor
NTG prn chest pain
Pending Results: Yes
Additional Pending Results:
Lp(a)
[2024-07-11] MEDS: FLUAD (65 yr+) 2024-2025 FORMULA 0.5 ML IM (15:35)
[2024-07-11 15:50] VITALS: BP 134/75
--- NOTE | 2024-07-11 15:58 | PTCARENOTE ---
All D/C info reviewed with pt and spouse, all questions answered. Influenza vax administered as per OCT. Pt D/C'd home with spouse.
[2024-07-13 12:01] LABS: Lipoprotein a (Lp a) <6 mg/dL (<=29)
== END 2024-07-11 15:59 | disposition home or self-care (01) | DRG 322 ==
LOC: IVU 23:58
PROVIDERS: Emergency Medicine; Internal Medicine Interventional Cardiology; Nurse Practitioner Adult Health; Physician Assistant Medical; ADMITTING PHYSICIAN Internal Medicine; ATTENDING PHYSICIAN Internal Medicine; CONSULT PHYSICIAN Internal Medicine Cardiovascular Disease; EMERGENCY PHYSICIAN Emergency Medicine; FAMILY PHYSICIAN Internal Medicine
PROC: 027034Z Dilation of Coronary Artery, One Artery with Drug-eluting Intraluminal Device, Percutaneous Approach (ICD-10-PCS; 2024-07-10)
PROC: 4A023N7 Measurement of Cardiac Sampling and Pressure, Left Heart, Percutaneous Approach (ICD-10-PCS; 2024-07-10)
PROC: B240ZZ3 Ultrasonography of Single Coronary Artery, Intravascular (ICD-10-PCS; 2024-07-10)
PROC: B2111ZZ Fluoroscopy of Multiple Coronary Arteries using Low Osmolar Contrast (ICD-10-PCS; 2024-07-10)
DX: I21.4 Non-ST elevation (NSTEMI) myocardial infarction (principal); I10 Essential (primary) hypertension; K21.9 Gastro-esophageal reflux disease without esophagitis; I25.10 Atherosclerotic heart disease of native coronary artery without angina pectoris; R73.9 Hyperglycemia, unspecified; Z79.82 Long term (current) use of aspirin; Z82.49 Family history of ischemic heart disease and other diseases of the circulatory system
CPT/HCPCS: 71046; 76770; 80048; 80053; 80061; 83036; 83695; 84484; 85025; 85027; 85347; 85730; 86803; 90662; 92978; 93005; 93306; 93458; 96374; 96375; 99152; 99153; 99291; C1725; C1753; C1769; C1874; C1887; C1894; C9600; G0008; Q9967

== ENCOUNTER 2024-08-14 08:39 | Outpatient (RCR) | payer MEDICARE, SELFPAY | END 2024-08-14 23:59 | disposition home or self-care (01) | LOC: CRHB 08:39 | PROVIDERS: Internal Medicine Cardiovascular Disease; ATTENDING PHYSICIAN Internal Medicine Interventional Cardiology | DX: I25.10 Atherosclerotic heart disease of native coronary artery without angina pectoris (principal); Z95.5 Presence of coronary angioplasty implant and graft; I25.2 Old myocardial infarction | CPT/HCPCS: G0422; G0423 ==

== ENCOUNTER → 2024-08-22 14:55 | Outpatient (REF) | payer MEDICARE, SELFPAY | LOC: HWRAD 14:55 | PROVIDERS: ATTENDING PHYSICIAN Nurse Practitioner; FAMILY PHYSICIAN Internal Medicine | DX: I25.10 Atherosclerotic heart disease of native coronary artery without angina pectoris (principal) | CPT/HCPCS: 93880 ==

== ENCOUNTER 2024-09-06 08:54 | Outpatient (RCR) | payer MEDICARE, SELFPAY | END 2024-09-06 23:59 | disposition home or self-care (01) | LOC: CRHB 08:54 | PROVIDERS: ATTENDING PHYSICIAN Internal Medicine Interventional Cardiology | DX: I25.10 Atherosclerotic heart disease of native coronary artery without angina pectoris (principal); Z95.5 Presence of coronary angioplasty implant and graft; I25.2 Old myocardial infarction | CPT/HCPCS: G0422; G0423 ==

== ENCOUNTER 2024-12-28 20:12 | Observation (INO) | payer MEDICARE, SELFPAY ==
[2024-12-28] VITALS (14 sets, daily range): BP systolic 142–191; BP diastolic 62–97; BMI 30.4
--- NOTE | 2024-12-28 17:16 | ED.GENMED ---
History of Present Illness
General
Chief Complaint: Visual Problem
Time Seen by Provider: 12/28/24 17:06
History of Present Illness
History of Present Illness:
Patient is a 64-year-old man with history of hypertension, diabetes presenting to the emergency department blurry vision. Patient states that he does usually work glasses. He states that at 2 PM he went outside start driving. He put on his
glasses and noticed some blurry vision to his right eye. He states initially it was double vision but then that has resolved and now it is only blurry vision. He states that his only happens when he uses his right eye. When he has both his eyes
open the blurry vision is improved. He denies any speech deficits. No numbness tingling. No weakness. He states it has not happened to him before. No foreign body sensation.
Past History
Past History
ED Past Medical History: HTN
ED Past Surgical History: Orthopedic and Tonsilectomy
Social History
Tobacco: Non-smoker
Alcohol: Occasional
Drug: None
Personal:
Living: with family
Phy Exam
Physical Exam
Physical Exam:
GENERAL: in no acute distress
HEENT: normocephalic, extraocular movements intact, moist oral mucosa
Eye: Visual acuity: OD-20/50, OS-20/40 [without correction]
Pupils: equal and reactive,
Extra-ocular movement: [ No palsy or entrapment]
Visual brown: intact
IOP: OD 11 OS 13
Eyelids:[Normal inspection,] [no edema] [no subcutaneous orbital emphysema] [no erythema,] [no stye,] [no periorbital ecchymosis.]
Conjunctiva/Sclera: [Normal inspection,] [no injection,] [no exudate,] [no conjunctival foreign material,] [no subconjunctival hemorrhage,] [no scleral icterus].
Cornea:[Normal inspection]
Anterior chamber:[Normal inspection] [no hyphema] [ no cell and flare]
NECK: normal inspection
RESPIRATORY: no respiratory distress
CARDIOVASCULAR: regular rate and rhythm
NEUROLOGIC: NEUROLOGIC: alert and oriented x 3, cranial nerves II-XII intact, right upper extremity strength 5/5, left upper extremity strength 5/5, right lower extremity strength 5/5, left lower extremity strength 5/5, normal sensation to light
touch, normal [id number] and dcho-fi-ycvj, gait not tested formally
SKIN: warm
Course
Orders/Labs/Results
Orders:
Orders
12/28/24 17:43
CT BRAIN PERF STROKE ALERT Urgent
Comment:
Reason For Exam: right eye vision loss
CT HEAD STROKE ALERT W/o Cont Urgent
Comment:
Reason For Exam: right eye vision loss
CT HEAD/NECK ANG STROKE ALERT Urgent
Comment:
Reason For Exam: right eye vision loss
12/28/24 17:53
Basic Metabolic Panel Urgent
Complete Blood Count/With Diff Urgent
PTT Urgent
Prothrombin Time Urgent
Troponin I Urgent
Abnormal Lab Results
12/28/24
17:53
Absolute Monos (auto) 0.9 H 10^3/uL
(0.1-0.6)
Monocytes % 12.9 H %
(1.7-9.3)
BUN 21 H mg/dl
(9-20)
Glucose 104 H mg/dl
(70-99)
12/28/24 17:53
12/28/24 17:53
Vital Signs
Initial and Last Documented VS:
Initial Vital Signs
Temp Pulse Resp BP Pulse Ox
98.3 F 69 18 163/90 98
12/28/24 16:52 12/28/24 16:52 12/28/24 16:52 12/28/24 16:52 12/28/24 16:52
Last Documented Vital Signs
Temp Pulse Resp BP Pulse Ox
98.3 F 61 20 169/88 98
12/28/24 16:52 12/28/24 18:36 12/28/24 18:36 12/28/24 18:36 12/28/24 18:36
MDM/Problems Addressed
Differential Diagnosis Includes:
Patient is a 64-year-old male with history of hypertension presenting to the emergency department blurry vision to the right eye. Vitals are unremarkable.
Patient vision changes is painless and does not have any flashers or floaters. History and exam not consistent with optic neuritis. Considered CVA though less likely given monocular blurry vision. Could be CRAO though not complete vision loss.
History and exam not consistent with an infection. He does not describe it as a curtain over his eyes less likely be retinal detachment. considered vitreous hemmorrhage
I did discuss with on-call neuro who states that CRAO could certainly be a possibility and he is within the window so will proceed as stroke alert. CT scans negative for acute abnormality or high grade occlusion.
Case discussed with telestroke [place] neuro. given patient is at the 4.5 hour darcy with mild symptoms will not give TNK. recommended additional 81 mg aspirin, admission for further imaging, optho consult.
*Critical Care Note
Total Time (30-74mins, 75-104mins- exclusive of procedures): 65
comment:
Critical care statement: A total of 65 minutes of critical care time was provided for this patient. This includes management of unstable vital signs, evaluation of the patient at bedside, reviewing the patient's pertinent medical records, ordering
and reviewing studies, arranging urgent treatment with development of a management plan, evaluating patient's response to treatment, frequent reassessment, and discussion with consultants. This time was separate from time utilized to perform the
aforementioned documented procedures.
ED Attending Note
-
Portions of this chart may have been created with voice recognition software.� Occasional wrong word or��sound alike� substitutions may have occurred due to the inherent limitations of voice recognition software.
Discharge Plan
Departure
Patient Disposition: Admit
Date of Disposition: 12/28/24
Time of Disposition: 19:23
Presentation/result/management discussed w/ accepting /DO: Hospitalist
Discharge Problem:
Visual changes
Prescriptions:
No Action
amlodipine 5 mg Tablet
5 mg PO HS
losartan 100 mg Tablet
100 mg PO DAILY
therapeutic multivitamin Tablet
1 tab PO DAILY
aspirin 81 mg Tablet,Delayed Release (Dr/Ec)
81 mg PO DAILY
famotidine 20 mg Tablet
20 mg PO DAILY
cholecalciferol (vitamin D3) 125 mcg (5,000 unit) Tablet
125 mcg PO DAILY
PreserVision AREDS-2 250-90-40-1 mg Capsule
1 tab PO DAILY
cyanocobalamin (vitamin B-12) 2,500 mcg Tablet
2,500 mcg PO DAILY
Move Free [employer] 750 mg-100 mg- 1.65 mg-108 mg Tablet
1 tab PO DAILY
atorvastatin 80 mg Tablet
80 mg PO QPM Qty: 90 3RF
nitroglycerin 0.4 mg Tablet, Sublingual
0.4 mg sublingual [id number] PRN (Reason: chest pain) Qty: 25 0RF
metoprolol succinate 25 mg Tablet Extended Release 24 Hr
25 mg PO DAILY Qty: 90 3RF
clopidogrel [Plavix] 75 mg Tablet
75 mg PO DAILY
cetirizine [Aller-Benito] 10 mg Tablet
10 mg PO DAILY
Referrals:
Tawnya Anthony DO [Family Provider] -
Interventions
Interventions:
*Risk Screen - Suicide Last Done: 12/28/24 16:52
*General Assessment Last Done: 12/28/24 16:52
*Neglect/Abuse Screening Last Done: 12/28/24 16:52
*ED- Fall Risk Assessment Last Done: 12/28/24 17:17
*ED COVID-19 Vaccine History Last Done: 12/28/24 17:17
ED-EENT Assessment Last Done: 12/28/24 17:17
ED- Neurological Assessment Last Done: 12/28/24 18:19
Discharge Date and Time
Print Language: FAROESE
[2024-12-28 17:47] LABS: Glucose - Point of Care 90 mg/dl (70-99)
[2024-12-28 18:01] LABS: % Basophils 0.8 % (0-2); % Eosinophils 3.3 % (0-6); % Immature Granulocytes 0.3 % (0-0.5); % Lymphocytes 20.7 % (20.5-51.1); % Monocytes 12.9 % (1.7-9.3); Absolute Basophils 0.1 10^3/uL (0-0.2); Absolute Eosinophils 0.2 10^3/uL (0-0.7); Absolute Lymphocytes 1.5 10^3/uL (1.2-3.4); Absolute Monocytes 0.9 10^3/uL (0.1-0.6); Absolute Neutrophils 4.5 10^3/uL (1.4-6.5); Hematocrit 44.2 % (39.0-52.0); Hemoglobin 15.3 g/dL (13.0-18.0); Mean Corp Hgb Conc. 34.6 g/dL (33.0-37.0); Mean Corpuscular Hgb 29.7 pg (27.0-31.0); Mean Corpuscular Volume 85.7 fL (80.0-94.0); Mean Platelet Volume 9.2 fL (7.4-10.4); Nucleated Red Blood Cells % 0 % (-); Platelet Count 214 10^3/uL (130-400); Red Blood Cell Count 5.16 10^6/uL (4.70-6.10); Red Cell Dist. Width 12.8 % (11.5-14.5); White Blood Cell Count 7.2 10^3/uL (4.8-10.8)
[2024-12-28 18:14] LABS: APTT 26.3 Sec (23.4-35.0); INR 0.87; PT 12.1 Sec (11.4-14.6)
--- NOTE | 2024-12-28 18:15 | EDRN ---
1744-stroke alert called per ER Dr Banerjee verbal order
1748 - fingerstick glucose-90
1750-18 G IV Right AC placed
1751 - pt transported to CT scan via ER stretcher on sap manager by this [employer] SAL[employer]
175 - pt on CT table for ordered imaging studies
181 - CT scans completed. pt returned to ER treatment room.
[2024-12-28 18:17] LABS: Blood Urea Nitrogen 21 mg/dl (9-20); Calcium 9.5 mg/dl (8.4-10.2); Carbon Dioxide 30 mmol/L (22-30); Chloride 105 mmol/L (98-107); Estimated Creatinine Clearance 98 ml/min; Glucose 104 mg/dl (70-99); Sodium 140 mmol/L (135-145); eGFR > 60.00
[2024-12-28 18:24] LABS: Troponin I < 0.012 ng/ml
--- NOTE | 2024-12-28 19:29 | HPS.HSE ---
Addendum entered and electronically signed by Herman Canada DO 12/28/24 20:11:
Patient seen and examined independently. Agree with findings and plan as set forth by SONIA Goins.
Patient is a 64y M with PMH significant for ASCVD and hypertension who presents to ED complaining of vision changes. Patient reports abrupt onset of blurry vision in the R eye around 2 PM today. He had no headache, eye pain, numbness, tingling
or ataxia. His symptoms persisted throughout the afternoon and he presented to the ED for further evaluation. No new / worsening symptoms. Also no interval improvement in blurry vision.
Patient is s/p PTCA with stent in 06/2024. He is currently on DAPT.
Ass:
Vision Change - R Eye
ASCVD
Benign Hypertension
GERD
Plan:
Observe overnight for further evaluation and treatment.
Continue DAPT, high intensity statin, etc.
CT head, perfusion scan and CTA all unremarkable.
Check MRI in AM.
Neurology, Cardiology, Ophthalmology consulted per stroke alert recommendations.
Monitor for any new / worsening symptoms.
Original Note:
Family Physician
-
Family Physician: Tawnya Anthony DO
Chief Complaint
-
blurry vision
History of Present Illness
64-year-old man with history of hypertension, HLD, CVA presenting to the emergency department blurry vision that started around 2pm. patient stated double vision through his right eye when he is trying to read. blurry vision persisted. denied MCCOY,
numbness, tingling. denied any focal weakness. denied fever, chills, chest pain, sob. denied abdominal pain,n,v,d. denied dysuria or hematuria.
head/neck CTA, CT with no acute findings. received asa in ER. admitting for further management.
Medical History
Past Medical History
Past Medical History: Reports Other
Additional Past Medical History:
HTN,CAD,Nstemi
Past Surgical History: Reports Other
Additional Past Surgical History:
cardiac stent
Social History
Tobacco: Non-smoker
Alcohol: Occasional
Drug: None
Personal:
Living: With Family
Employment: Employed
Family History
Family History: Not pertinent
Allergies / Home Medications
Allergies reflects when Allergies were last updated in [facility].
Home Medications with original date entered in [facility]
Allergy/Medication List:
Allergies
Allergy/AdvReac Type Severity Reaction Status Date / Time
No Known Allergies Allergy Verified 12/28/24 17:16
Home Medications
amlodipine 5 mg tablet 5 mg PO HS Blood Pressure 07/09/24
aspirin 81 mg tablet,delayed release 81 mg PO DAILY Blood Clot Prevention/Tx 07/09/24
cholecalciferol (vitamin D3) 125 mcg (5,000 unit) tablet 125 mcg PO DAILY Supplement 07/09/24
cyanocobalamin (vitamin B-12) 2,500 mcg tablet 2,500 mcg PO DAILY Supplement 07/09/24
famotidine 20 mg tablet 20 mg PO DAILY Gastrointestinal Issue 07/09/24
glucosam 750 mg-chondroi 100 mg-hyalur 1.65 mg-CF borate 108 mg tablet (Move Free EasyPost) 1 tab PO DAILY Supplement 07/09/24
losartan 100 mg tablet 100 mg PO DAILY Blood Pressure 07/09/24
therapeutic multivitamin 1 tab PO DAILY Supplement 07/09/24
vit C 250 mg-vit E 90 mg-zinc 40 mg-copper 1 [id number] capsule (PreserVision AREDS-2) 1 tab PO DAILY Supplement 07/09/24
atorvastatin 80 mg tablet 80 mg PO QPM #90 tabs 07/11/24
metoprolol succinate 25 mg tablet,extended release 24 hr 25 mg PO DAILY #90 tabs 07/11/24
nitroglycerin 0.4 mg sublingual tablet 0.4 mg sublingual [id number] PRN chest pain #25 tabs 07/11/24
cetirizine 10 mg tablet (Aller-Benito) 10 mg PO DAILY 12/28/24
clopidogrel 75 mg tablet (Plavix) 75 mg PO DAILY 12/28/24
Review of Systems
-
Constitutional: Reports No Symptoms
EENT: Reports No Symptoms
Respiratory: Reports No Symptoms
Cardiac: Reports No Symptoms
Abdomen/GI: Reports No Symptoms
: Reports No Symptoms
Musculoskeletal: Reports No Symptoms
Skin: Reports No Symptoms
Neurological: Reports Other (blurry vision)
Endocrine: Reports No Symptoms
Hematologic/Lymphatic: Reports No Symptoms
Psych: Reports No Symptoms
Physical Exam
Vital Signs
Vital Signs
Temp Pulse Resp BP Pulse Ox
98.3 F 59 22 175/94 99
12/28/24 16:52 12/28/24 19:15 12/28/24 19:15 12/28/24 18:45 12/28/24 18:45
Physical Exam
General: Well Developed, Well Nourished and No Apparent Distress
HEENT: NormoCephalic, Moist mucous membranes and Atraumatic
Respiratory: Clear
Cardiac: S1/S2 and Regular Rhythm; No Murmur or Rub
GI: Soft, Non Tender, Non Distended and Normal Bowel Sounds; No Organomegaly
Rectal: Deferred by Provider
Musculoskeletal: No Clubbing, No Cyanosis and No Edema
Skin: No Rash
Neuro: AO x 3 and Nonfocal/grossly intact
Psych: Calm
Laboratory Results
-
12/28/24 17:53
12/28/24 17:53
Laboratory Results
PT 12.1 Sec (11.4-14.6) 12/28/24 17:53
INR 0.87 12/28/24 17:53
APTT 26.3 Sec (23.4-35.0) 12/28/24 17:53
Total Bilirubin Cancelled 12/28/24 17:53
AST Cancelled 12/28/24 17:53
ALT Cancelled 12/28/24 17:53
Alkaline Phosphatase Cancelled 12/28/24 17:53
Troponin I < 0.012 ng/ml 12/28/24 17:53
Data Reviewed
-
CT Scan: Report Reviewed by me
Lab Data: Labs Reviewed by me
Impression/Plan
-
#right eye blurry vision r/o acute CVA/central retinal artery occlusion
-cardiology, ophthalmology consulted
-asa 81mg continued
-head/neck CTA negative
-head CT negative
-obtain MRI
-asa, statin
-obtain a1c, lipid profile
-neuro consult
#hxt of NSTEMI
-asa and Plavix continued
#HTN
-Norvasc,metoprolol continued with hold parameter
#HLD
-statin continued
#GERD
-PPI continued
#DVT Prophylaxis
-scd
#CODE status
-full code
[2024-12-28] MEDS: LOW STRENGTH ASPIRIN 81 MG PO (19:37)
[2024-12-28] MEDS: LIPITOR 80 MG PO (21:08)
--- NOTE | 2024-12-28 21:58 | CON.CAR ---
Consultation
Consultation Request
Date/Time Consultation Requested: 12/28/2024 1950
Date/Time Consultation Performed: 12/28/2024 2300
Requesting Provider: Jayda Polanco
Performing Provider: Wei Talavera
Reason for Consultation: CVA
Medical History
-
Chief Complaint: Blurry R Eye
History of Present Illness:
Patient is a pleasant 64-year-old male with a past medical history significant for hypertension, hyperglycemia, dyslipidemia, CAD status post LAD PCI 07/10/2024 with residual 30-40% RCA stenosis who presents due to sudden onset right eye blurriness.
He reported that this occurred in the early afternoon while driving noting that his right eye was blurry despite his driving glasses. Patient went over to his son's house to help build a greenhouse but still noted continued blurriness. Due to his
prior concern with coronary disease, he proceeded to emergency department for evaluation. In discussion with patient, he denies any chest pain, shortness of breath, lightheadedness, dizziness, near-syncope, syncope, PND, orthopnea, palpitations, or
focal deficits. He reports no issues with word finding or speech. He notes in the time that he is been in the emergency department, his blurriness has not changed. Patient underwent evaluation by teleneurology in emergency department. Initial
lab work is unremarkable. CT head with CTA head and neck unremarkable. Vascular ultrasound of the carotids performed August 2024 showed plaque in the carotid bulbs however velocities consistent with less than 50% ICA stenosis bilaterally with
antegrade vertebral artery flow.
Social History
Tobacco: Non-Smoker
Alcohol: None
Drug: None
Personal:
Living: With Family
Employment: Employed
Family History
Family History: Other (CAD (maternal grandmother with carotid disease and angina in her 80s; paternal grandfather AAA rupture in his 60s))
Allergies / Home Medications
Allergy/AdvReac Type Severity Reaction Status Date / Time
No Known Allergies Allergy Verified 12/28/24 17:16
�Medication �Instructions �Recorded �Confirmed �Type
amlodipine 5 mg tablet 5 mg PO HS Blood Pressure 07/09/24 12/28/24 History
aspirin 81 mg tablet,delayed 81 mg PO DAILY Blood Clot 07/09/24 12/28/24 History
release Prevention/Tx
cholecalciferol (vitamin D3) 125 125 mcg PO DAILY Supplement 07/09/24 12/28/24 History
mcg (5,000 unit) tablet
cyanocobalamin (vitamin B-12) 2,500 mcg PO DAILY Supplement 07/09/24 12/28/24 History
2,500 mcg tablet
famotidine 20 mg tablet 20 mg PO DAILY Gastrointestinal 07/09/24 12/28/24 History
Issue
glucosam 750 mg-chondroi 100 1 tab PO DAILY Supplement 07/09/24 12/28/24 History
mg-hyalur 1.65 mg-CF borate 108 mg
tablet (Move Free Jostle)
losartan 100 mg tablet 100 mg PO DAILY Blood Pressure 07/09/24 12/28/24 History
therapeutic multivitamin 1 tab PO DAILY Supplement 07/09/24 12/28/24 History
vit C 250 mg-vit E 90 mg-zinc 40 1 tab PO DAILY Supplement 07/09/24 12/28/24 History
mg-copper 1 [id number]
capsule (PreserVision AREDS-2)
atorvastatin 80 mg tablet 80 mg PO QPM #90 tabs 07/11/24 12/28/24 Rx
metoprolol succinate 25 mg 25 mg PO DAILY #90 tabs 07/11/24 12/28/24 Rx
tablet,extended release 24 hr
nitroglycerin 0.4 mg sublingual 0.4 mg sublingual [id number] PRN 07/11/24 12/28/24 Rx
tablet chest pain #25 tabs
cetirizine 10 mg tablet (Aller-Benito) 10 mg PO DAILY 12/28/24 12/28/24 History
clopidogrel 75 mg tablet (Plavix) 75 mg PO DAILY 12/28/24 12/28/24 History
Review of Systems
-
History Source: Patient and Family
Constitutional: No Symptoms
EENT: No Symptoms
Respiratory: No Symptoms
Cardiac: No Symptoms
Abdomen/GI: No Symptoms
: No Symptoms
Musculoskeletal: No Symptoms
Skin: No Symptoms
Neurological: Other (Right eye blurriness)
Endocrine: No Symptoms
Hematologic/Lymphatic: No Symptoms
Physical Exam
Vital Signs
Temp Pulse Resp BP Pulse Ox
98.3 F 64 15 161/91 97
12/28/24 16:52 12/28/24 21:15 12/28/24 21:15 12/28/24 21:00 12/28/24 21:15
Lab Results
12/28/24 17:53
12/28/24 17:53
Troponin I < 0.012 ng/ml 12/28/24 17:53
Physical exam:
GENERAL: no acute distress
EYE: sclera anicteric
NECK: Supple, no JVD, no carotid bruit appreciated
ENT: normal nose, moist mucosal membranes
CARDIAC: Regular rate and rhythm, +S1/S2, no murmur, rubs, or gallops
CHEST/PULMONARY: Normal effort, clear breath sounds
ABDOMEN: Soft, without focal tenderness or distention
NEUROLOGICAL: Alert and oriented x3
SKIN: Warm and dry, no rash
PSYCH: Normal and appropriate interaction.
Impression / Plan
-
PCP: Dr. Twanya Anthony
Fire Control System Installer: Dr. Vicki Crowley
Impression:
Right eye blurriness
� Unclear etiology, concern for stroke
� CT head, CTA head and neck unremarkable per report
� Telemetry sinus rhythm
� Carotid ultrasound August 2024 plaque bilateral bulbs with less than 50% stenosis bilaterally, vertebral artery flow antegrade
CAD status post PCI 07/10/2024
� PCI to LAD; residual 30-40% stenosis mid RCA
� On high intensity statin, aspirin/Plavix, losartan, amlodipine, metoprolol succinate
Hypertension
� Amlodipine 5 mg daily, losartan 100 mg daily, metoprolol succinate 25 mg daily
Mixed dyslipidemia on statin therapy
[facility] 07/10/2024: LM: Minimal luminal irregularities. LAD: 75 to 80% stenosis of the mid LAD which was successfully stented with a 2.75 x 15 mm Andrea JACLYN. LCx: Minimal luminal irregularities. RCA: 30 to 40% stenosis of the mid RCA.
Echo 07/10/24: EF 55 to 60%, trace MR, mild TR, estimated PAP 26 mmHg
Recommendations:
� Repeat 2D echocardiogram with bubble study
� Repeat fasting lipid panel goal less than 55
� Continue dual antiplatelet therapy, statin; defer blood pressure goals to neurology
� Brain MRI pending
� Check EKG; Monitor on telemetry
� Further recommendations to follow
Data Reviewed
-
Radiology: Report Reviewed by me
CT Scan: Report Reviewed by me
Ultrasound: Report Reviewed by me
Medical Tests (Nuc Med, Echo etc): Report Reviewed by me
Labs: Labs Reviewed by me
Old Records: Reviewed
--- NOTE | 2024-12-28 22:47 | PTCARENOTE ---
Addendum entered by Katherin Mondragon RN 12/28/24 23:06:
NIH is a 2 in right eye.
Original Note:
Pt. admitted from [facility], AAO x 3, NSR with first degree AVB, NIH scale 1, call mckeon within reach.
[2024-12-28 23:01] LABS: Erythrocyte Sed Rate 2 mm/hour (0-20)
[2024-12-28 23:07] LABS: C-Reactive Protein < 5.00 mg/L (0.0-10.00)
[2024-12-29 03:20] VITALS: BP 155/76
[2024-12-29 07:00] VITALS: BP 144/92
[2024-12-29 08:17] LABS: Glycohemoglobin (HgbA1c) 5.7 % (4.0-5.6)
[2024-12-29] MEDS: VITAMIN B-12 2500 MCG PO (08:21)
[2024-12-29] MEDS: OCUVITE SOFTGEL 1 CAP PO (08:23)
[2024-12-29] MEDS: THERAGRAN 1 TABLET PO (08:24)
[2024-12-29] MEDS: COZAAR 100 MG PO (08:24)
[2024-12-29] MEDS: ASPIR LOW (ENTERIC COATED) 81 MG PO (08:24)
[2024-12-29] MEDS: TOPROL XL 25 MG PO (08:24)
[2024-12-29] MEDS: ZYRTEC 10 MG PO (08:25)
[2024-12-29] MEDS: VITAMIN D3 (cholecalciferol) 125 MCG PO (08:25)
[2024-12-29] MEDS: PEPCID 20 MG PO (08:25)
[2024-12-29] MEDS: PLAVIX 75 MG PO (08:25)
[2024-12-29 10:33] LABS: HDL Cholesterol 53 mg/dl; LDL Cholesterol, Calculated 47 mg/dl; Total Cholesterol 109 mg/dl (50-199); Triglyceride 49 mg/dl (10-149); Very Low Density Lipoprotein 9 mg/dl (0-30)
--- NOTE | 2024-12-29 10:34 | PTOTSP ---
Speech Pathology
Clinical Swallow Evaluation
64M with admission for CVA/TIA workup p/w s/s of a functional oropharyngeal swallow. No overt concerns for aspiration or dysphagia at this time. MRI planned for today. Speech pathology to follow up only if MRI positive for acute infarct.
Recommend:
1. Continue with regular texture (IDDSI 7), thin liquids (IDDSI 0)
2. Meds whole with thin liquid wash
3. Reflux precautions
3. QUILLER HAND service follow up only if MRI positive, if not, will s/o
[2024-12-29 11:00] VITALS: BP 147/79
--- NOTE | 2024-12-29 13:01 | PTOTSP ---
PRESSURE SEALER AND TESTER Follow Up
MRI with no evidence for an acute infarct. No overt concerns for aspiration/dysphagia at this time. Speech to s/o. Please re-consult if overt s/s arise.
Recommend:
1. Continue with regular texture (IDDSI 7), thin liquids (IDDSI 0)
2. Meds whole with thin liquid wash
3. Reflux precautions
3. PRESSURE SEALER AND TESTER service to s/o
--- NOTE | 2024-12-29 13:13 | W.PN.HOSP.TC ---
Today's Communication/Plan
-
d/c
Assessment / Plan
Assessment / Plan
pt is a 64 year old male
right eye blurry vision --resolved--could be TIA OR worsening vision change (glasses prescription 4 years old)--cont asa/plavix/lipitor--head CT, MRI brain, CTA head and neck all neg for acute stroke--await neuro--outpt echo--OK for d/c--f/u with
ophtho as outpt
hxt of NSTEMI-asa and Plavix continued
essential HTN--Norvasc,metoprolol continued with hold parameter
HLD-statin continued
GERD-PPI continued
DVT Prophylaxis-scd
CODE status-full code
Anticipated Discharge: Today
Subjective/Interval History
-
Date of Service: December 29, 2024
pt symptoms of blurry vision--resolved
Objective Data
-
Vital Signs:
max temp for 24 hours
12/28/24
16:52
Temp 98.3 F
Vital Signs
Temp Pulse Resp BP Pulse Ox
98.3 F 61 16 147/79 96
12/29/24 11:00 12/29/24 11:00 12/29/24 11:00 12/29/24 11:00 12/29/24 11:00
I&O
12/28/24 12/29/24 12/30/24
06:59 06:59 06:59
Output Total 550 / 550
Balance -550 / -550
Review of Systems
-
All other systems: Reviewed and negative
Physical Exam
-
General: Well Developed, Well Nourished and No Apparent Distress
HEENT: Normocephalic and Atraumatic
Respiratory: Clear to Auscultation; Negative Wheezes or Rhonchi
Cardiac: Regular Rhythm, S1/S2 and Murmur
GI: Soft, Nontender, Nondistended and Normal Bowel Sounds
Musculoskeletal: No Clubbing, No Cyanosis and No Edema
Skin: Warm
Neuro: Awake
Psych: Calm
--- NOTE | 2024-12-29 14:03 | CON.NEURO ---
Neuro Assessment/Plan
Assessment
CTA head/neck imgs rev'd atherosclerosis b/l carotids, with <50% stenosis bilaterally
MRI imgs reviewed, no stroke
TIA - CRAO - appears self resolved
Plan
continue ASA 81, Plavix 75, Lipitor 80
ok to d/c home
Consultation
Order
Date of Consultation: 12/29/24
Requesting Provider: Collin Montelongo
Reason for Consult: TIA
Subjective/Objective
Subjective Data
Date of Service: December 29, 2024
from h&p:
64-year-old man with history of hypertension, HLD, CVA presenting to the emergency department blurry vision that started around 2pm. patient stated double vision through his right eye when he is trying to read. blurry vision persisted. denied MCCOY,
numbness, tingling. denied any focal weakness. denied fever, chills, chest pain, sob. denied abdominal pain,n,v,d. denied dysuria or hematuria.
I spoke to the ED physician ~5:40 pm, with concern for possible CRAO, patient in TNK window, I advised stroke alert called. The symptoms being relatively mild, by the time telestroke neurologist evaluated patient, it was almost 4.5 hours, and
decision was no TNK
This morning, patient reports right eye vision symptoms are resolved
Objective Data
Vital Signs
Temp Pulse Resp BP Pulse Ox
36.8 C 61 16 147/79 96
12/29/24 11:00 12/29/24 11:00 12/29/24 11:00 12/29/24 11:00 12/29/24 11:00
Lab Results
12/28/24 17:53
12/28/24 17:53
PT 12.1 Sec (11.4-14.6) 12/28/24 17:53
INR 0.87 12/28/24 17:53
APTT 26.3 Sec (23.4-35.0) 12/28/24 17:53
Sodium 140 mmol/L (135-145) 12/28/24 17:53
Potassium mmol/L (3.5-5.1) 12/28/24 17:53
BUN 21 mg/dl (9-20) H 12/28/24 17:53
Glucose 104 mg/dl (70-99) H 12/28/24 17:53
Calcium 9.5 mg/dl (8.4-10.2) 12/28/24 17:53
LDL Cholesterol, Calc 47 mg/dl 12/29/24 08:27
Patient Allergies
No Known Allergies Allergy (Verified 12/28/24 17:16)
Physical Exam
-
AAOx3, speech clear, vision intact
VFF, EOMI, face symmetric
full strength b/l UE/LE
sensation intact touch
Medications
-
Active Medications
Generic Name Dose Route Start Last Admin
Trade Name Freq PRN Reason Stop Dose Admin
Acetaminophen 650 mg 12/28/24 21:55
Acetaminophen 650 Mg Rectal Suppository RECTAL 01/25/25 21:54
Q4HPRN PRN
MCCOY, mild pain, or temp >100.4F
Acetaminophen 650 mg 12/28/24 21:55
Acetaminophen 325 Mg Tablet PO 01/25/25 21:54
Q4HPRN PRN
MCCOY, mild pain, or temp >100.4F
Aspirin 81 mg 12/29/24 08:00 12/29/24 08:24
Aspirin 81 Mg (Enteric Coated) Tablet PO 01/26/25 07:59 81 mg
DAILY WESLEY Administration
Atorvastatin Calcium 80 mg 12/29/24 18:00
Atorvastatin (Lipitor) 80 Mg Tablet PO 01/26/25 17:59
QPM WESLEY
Cetirizine HCl 10 mg 12/29/24 08:00 12/29/24 08:25
Cetirizine Hcl 10 Mg Tablet PO 01/26/25 07:59 10 mg
DAILY WESLEY Administration
Cholecalciferol 125 mcg 12/29/24 08:00 12/29/24 08:25
Cholecalciferol (Vitamin D3) 125 Mcg Tablet (5,000 Units) PO 01/26/25 07:59 125 mcg
DAILY WESLEY Administration
Clopidogrel Bisulfate 75 mg 12/29/24 08:00 12/29/24 08:25
Clopidogrel 75 Mg Tablet PO 01/26/25 07:59 75 mg
DAILY WESLEY Administration
Cyanocobalamin 2,500 mcg 12/29/24 08:00 12/29/24 08:21
Cyanocobalamin 1,000 Mcg Tablet PO 01/26/25 07:59 2,500 mcg
DAILY WESLEY Administration
Famotidine 20 mg 12/29/24 08:00 12/29/24 08:25
Famotidine 20 Mg Tablet PO 01/26/25 07:59 20 mg
DAILY WESLEY Administration
Losartan Potassium 100 mg 12/29/24 08:00 12/29/24 08:24
Losartan 100 Mg Tablet PO 01/26/25 07:59 100 mg
DAILY WESLEY Administration
Metoprolol Succinate 25 mg 12/29/24 08:00 12/29/24 08:24
Metoprolol 25 Mg Extended Release Tablet PO 01/26/25 07:59 25 mg
DAILY WESLEY Administration
Multivitamins Therapeutic 1 tablet 12/29/24 08:00 12/29/24 08:24
Multivitamin Tablet PO 01/26/25 07:59 1 tablet
DAILY WESLEY Administration
Sodium Chloride 0 flush 12/28/24 22:00
Sodium Chloride 0.9% (Flush) Syringe IV 01/25/25 21:59
PER PROTOCOL WESLEY
Vitamin C/Vitamin E 1 cap 12/29/24 08:00 12/29/24 08:23
Vit C/Vit E/Lutein/Min/Clementon-3 (Ocuvite) Capsule PO 01/26/25 07:59 1 cap
DAILY WESLEY Administration
Home Medications
�Medication �Instructions �Recorded
amlodipine 5 mg tablet 5 mg PO HS Blood Pressure 07/09/24
aspirin 81 mg tablet,delayed 81 mg PO DAILY Blood Clot 07/09/24
release Prevention/Tx
cholecalciferol (vitamin D3) 125 125 mcg PO DAILY Supplement 07/09/24
mcg (5,000 unit) tablet
cyanocobalamin (vitamin B-12) 2,500 mcg PO DAILY Supplement 07/09/24
2,500 mcg tablet
famotidine 20 mg tablet 20 mg PO DAILY Gastrointestinal 07/09/24
Issue
glucosam 750 mg-chondroi 100 1 tab PO DAILY Supplement 07/09/24
mg-hyalur 1.65 mg-CF borate 108 mg
tablet ([employer])
losartan 100 mg tablet 100 mg PO DAILY Blood Pressure 07/09/24
therapeutic multivitamin 1 tab PO DAILY Supplement 07/09/24
vit C 250 mg-vit E 90 mg-zinc 40 1 tab PO DAILY Supplement 07/09/24
mg-copper 1 [id number]
capsule (PreserVision AREDS-2)
atorvastatin 80 mg tablet 80 mg PO QPM #90 tabs 07/11/24
metoprolol succinate 25 mg 25 mg PO DAILY #90 tabs 07/11/24
tablet,extended release 24 hr
nitroglycerin 0.4 mg sublingual 0.4 mg sublingual [id number] PRN 07/11/24
tablet chest pain #25 tabs
cetirizine 10 mg tablet (Aller-Benito) 10 mg PO DAILY Allergies 12/28/24
clopidogrel 75 mg tablet (Plavix) 75 mg PO DAILY Blood Clot 12/28/24
Prevention/Tx
--- NOTE | 2024-12-29 14:12 | CM ---
Patient for d/c today. Met w/ patient and spouse bedside, initial assessment completed. Patient is a 64-year-old man with history of hypertension, HLD, CVA presenting to the emergency department blurry vision.
Patient resides w/ spouse in a [facility]- 3 steps to enter. Independent, no DME. No SNF/HC hx reported
Address, point of contact and insurance verified
PCP: Tawnya Anthony
Pharmacy: [facility]
IMM verbally reviewed, copy given to patient, copy on chart
No CM needs identified at this time
Plan: Home, no needs
--- NOTE | 2024-12-30 06:24 | W.DCSUMMARY ---
Discharge Summary
Discharge Data
Date of Admission: 12/28/24
Date of Discharge: 12/29/24
-
Pending Results: No
Hospital Course
Primary care physician : Tawnya Anthony
Principal Discharge diagnosis : Blurry vision to the right eye
Chronic Discharge diagnosis : History of non-ST segment elevation myocardial infarction, essential hypertension, hyperlipidemia, gastroesophageal reflux disease
Hospital Course : Patient was a 64-year-old male who presented with complaints of blurry vision in the right eye that started around 2 PM on the day of admission. He stated he had double vision through his right eye when he was trying to read and
the blurry vision persisted. He denied headache, numbness, tingling, or any focal weakness. He stated that he put his driving glasses on and specifically noticed worsening with his vision. Given his previous history of HI, patient was concerned
and presented for evaluation and treatment.
Problem #1: Blurry vision to the right eye. Patient was brought in for concern for stroke/TIA and central retinal artery occlusion. Patient underwent CAT scan of his head and head and neck CTA in the emergency department both of which were
negative for any acute findings or significant stenosis. He then underwent brain MRI which also showed no evidence for acute infarct. Lipids were checked and showed a total cholesterol of 109 with an LDL of 47. Patient was already on aspirin and
Plavix as well as high-dose statin from his previous issues. Neurology was consulted. Perhaps this could have been a transient ischemic attack as his vision has returned to baseline at discharge. He is instructed to follow-up with his
mechanical integrity specialist for a further eye exam as his driving glasses prescription was over 4 years old.
Problem #2: All other medical issues. These include History of non-ST segment elevation myocardial infarction, essential hypertension, hyperlipidemia, gastroesophageal reflux disease. These medical issues were stable during his hospitalization.
Medications were continued as able.
Patient is stable for discharge home at this time. He can complete his echocardiogram as an outpatient since his studies are negative. If there are any questions regarding this dictation or his hospital stay, please not hesitate to call. Our
office number is [phone].
Important imaging findings :
HEAD CT SCAN IMPRESSION:
No CT evidence for an acute intracranial hemorrhage or transcortical infarct.
HEAD AND NECK CTA IMPRESSION:
No CTA evidence for high-grade stenosis or occlusion of the arterial vasculature in the head or neck.
BRAIN MRI IMPRESSION:
No MRI evidence for an acute infarct.
Discharge Plan
-
Patient Disposition: Home (Routine Discharge)
Discharge Diagnosis/Procedures: blurry vision right eye, history of NSTEMI, essential hypertension, hyperlipidemia, gastroesophageal reflux disease
Condition: Good
Diet: As tolerated and Low Cholesterol
Activity: As tolerated
Driving Restrictions: As prior to admission
Bathing Restrictions: None
Activity Restrictions/Additional Instructions:
need outpt echocardiogram to complete your workup
follow up with your eye doctor
Referrals:
Tawnya Anthony, [Family Provider] - in less than 1 week
Prescriptions:
Continued
amlodipine 5 mg Tablet
5 mg PO HS
losartan 100 mg Tablet
100 mg PO DAILY
therapeutic multivitamin Tablet
1 tab PO DAILY
aspirin 81 mg Tablet,Delayed Release (Dr/Ec)
81 mg PO DAILY
famotidine 20 mg Tablet
20 mg PO DAILY
cholecalciferol (vitamin D3) 125 mcg (5,000 unit) Tablet
125 mcg PO DAILY
PreserVision AREDS-2 250-90-40-1 mg Capsule
1 tab PO DAILY
cyanocobalamin (vitamin B-12) 2,500 mcg Tablet
2,500 mcg PO DAILY
[employer] 750 mg-100 mg- 1.65 mg-108 mg Tablet
1 tab PO DAILY
atorvastatin 80 mg Tablet
80 mg PO QPM Qty: 90 3RF
nitroglycerin 0.4 mg Tablet, Sublingual
0.4 mg sublingual [id number] PRN (Reason: chest pain) Qty: 25 0RF
metoprolol succinate 25 mg Tablet Extended Release 24 Hr
25 mg PO DAILY Qty: 90 3RF
clopidogrel [Plavix] 75 mg Tablet
75 mg PO DAILY
cetirizine [Aller-Benito] 10 mg Tablet
10 mg PO DAILY
Discharge Orders:
Discharge Patient (As Directed); Ordered 12/29/24
Ordered By: Kathy Elmore
Discharge Date and Time
Discharge Date/Time: 12/29/24 14:08
Print Language: BURUNDI[place]
== END 2024-12-29 14:08 | disposition home or self-care (01) ==
LOC: 4 WEST ACU 20:12
PROVIDERS: Registered Nurse; ADMITTING PHYSICIAN Hospitalist; ATTENDING PHYSICIAN Internal Medicine; CONSULT PHYSICIAN Internal Medicine Cardiovascular Disease; CONSULT PHYSICIAN Psychiatry & Neurology Clinical Neurophysiology; EMERGENCY PHYSICIAN Student in an Organized Health Care Education/Training Program; FAMILY PHYSICIAN Internal Medicine
DX: H53.9 Unspecified visual disturbance (principal); I10 Essential (primary) hypertension; E11.9 Type 2 diabetes mellitus without complications; H53.2 Diplopia; I25.10 Atherosclerotic heart disease of native coronary artery without angina pectoris; R00.1 Bradycardia, unspecified; K21.9 Gastro-esophageal reflux disease without esophagitis; E78.2 Mixed hyperlipidemia; I25.2 Old myocardial infarction; Z86.73 Personal history of transient ischemic attack (TIA), and cerebral infarction without residual deficits; Z95.5 Presence of coronary angioplasty implant and graft; Z82.49 Family history of ischemic heart disease and other diseases of the circulatory system; Z79.82 Long term (current) use of aspirin; Z79.02 Long term (current) use of antithrombotics/antiplatelets
CPT/HCPCS: 0042T; 70450; 70496; 70498; 70551; 80048; 80061; 82962; 83036; 84484; 85025; 85610; 85652; 85730; 86140; 92610; 93005; 99291; G0378; Q9967